=== PATIENT | female | born 1950 | race Caucasian/White ===

== ENCOUNTER 2017-08-04 10:04 | Inpatient (IN) | payer MEDICARE, MEDICAID ==
[~2017-08-04] VITALS: Ht 167.6 cm; Wt 97.7 kg
[2017-08-04] MEDS ORDERED: NS IV 500 ML 500 ML IV ONE (10:15)
--- NOTE | 2017-08-04 10:22 | ED Fall/Injury ---
General Stated Complaint: FALL Source: patient Exam Limitations: no limitations History of Present Illness Date Seen by Provider: Aug 04, 2017 Time Seen by Provider: 10:17 Initial Comments Patient present to ER by EMS with a chief complaint that she was at [facility] and found by staff laying on the floor requesting help to get up. Patient states she had a fall and after that she could not move her right leg was having commencement of pain in her right hip area. She has a history of having fractured her right ankle years ago but no hip problems. She says she can still feel and move her feet. She is not on any blood thinners. She does not take any medications. She denies any chest pain, shortness of breath, fevers , chills, nausea, vomiting. EMS reports her right leg is outwardly rotated mildly flexed and she will not allow them to move it but she is also not requesting any pain medicine so they have not done anything but start an IV. Allergies and Home Medications Allergies Coded Allergies: No Known Drug Allergies (Unverified , 08/04/17) Constitutional: No chills, No diaphoresis Eyes: Denies Blindness, Denies Blurred Vision Ears, Nose, Mouth, Throat: denies ear pain, denies ear discharge Respiratory: No cough, No short of breath Cardiovascular: No chest pain, No palpitations Gastrointestinal: No abdominal pain, No constipation, No diarrhea, No nausea Genitourinary: No discharge, No dysuria Musculoskeletal: see HPI, No back pain Skin: No pruritus, No rash Past Rhoueda-Nczxlg-Wwopjv Hx Patient Social History Alcohol Use: Denies Use Recreational Drug Use: No Smoking Status: Never a Smoker Physical Exam Vital Signs Capillary Refill : General Appearance: WD/WN, no apparent distress HEENT: PERRL/EOMI, TMs normal, pharynx normal, other (negative for hemotympanum , troy sign, raccoon eyes.) Neck: non-tender, supple, normal inspection Cardiovascular: normal peripheral pulses, regular rate, rhythm, no edema Respiratory: chest non-tender, lungs clear, normal breath sounds, no respiratory distress, no accessory muscle use Gastrointestinal: non tender, soft Extremities: no pedal edema, no calf tenderness, normal capillary refill, other (tenderness around the right hip. Outwardly rotated.) Neurologic/Psychiatric: alert, normal mood/affect, oriented x 3 Skin: normal color, warm/dry Teja Coma Score Best Eye Response: (4) Open Spontaneously Best Verbal Response: (5) Oriented Best Motor Response: (6) Obeys Commands Teja Total: 15 Progress/Results/Core Measures Results/Orders Lab Results Laboratory Tests Test 08/04/17 10:08 08/04/17 11:15 Range/Units White Blood Count 9.6 4.3-11.0 10^3/uL Red Blood Count 4.39 4.35-5.85 10^6/uL Hemoglobin 12.6 11.5-16.0 G/DL Hematocrit 39 35-52 % Mean Corpuscular Volume 88 80-99 FL Mean Corpuscular Hemoglobin 29 25-34 PG Mean Corpuscular Hemoglobin Concent 33 32-36 G/DL Red Cell Distribution Width 14.2 10.0-14.5 % Platelet Count 216 130-400 10^3/uL Mean Platelet Volume 11.0 H 7.4-10.4 FL Neutrophils (%) (Auto) 58 42-75 % Lymphocytes (%) (Auto) 31 12-44 % Monocytes (%) (Auto) 8 0-12 % Eosinophils (%) (Auto) 3 0-10 % Basophils (%) (Auto) 1 0-10 % Neutrophils # (Auto) 5.6 1.8-7.8 X 10^3 Lymphocytes # (Auto) 3.0 1.0-4.0 X 10^3 Monocytes # (Auto) 0.8 0.0-1.0 X 10^3 Eosinophils # (Auto) 0.3 0.0-0.3 10^3/uL Basophils # (Auto) 0.1 0.0-0.1 10^3/uL Sodium Level 140 135-145 MMOL/L Potassium Level 4.2 3.6-5.0 MMOL/L Chloride Level 103 98-107 MMOL/L Carbon Dioxide Level 23 21-32 MMOL/L Anion Gap 14 5-14 MMOL/L Blood Urea Nitrogen 14 7-18 MG/DL Creatinine 1.01 0.60-1.30 MG/DL Estimat Glomerular Filtration Rate 55 BUN/Creatinine Ratio 14 Glucose Level 107 H 70-105 MG/DL Calcium Level 9.5 8.5-10.1 MG/DL Total Bilirubin 0.3 0.1-1.0 MG/DL Aspartate Amino Transf (AST/SGOT) 21 5-34 U/L Alanine Aminotransferase (ALT/SGPT) 18 0-55 U/L Alkaline Phosphatase 80 40-136 U/L Total Protein 8.5 H 6.4-8.2 GM/DL Albumin 4.1 3.2-4.5 GM/DL Urine Color YELLOW Urine Clarity CLEAR Urine pH 5 5-9 Urine Specific [place] 1.015 L 1.016-1.022 Urine Protein NEGATIVE NEGATIVE Urine Glucose (UA) NEGATIVE NEGATIVE Urine Ketones NEGATIVE NEGATIVE Urine Nitrite NEGATIVE NEGATIVE Urine Bilirubin NEGATIVE NEGATIVE Urine Urobilinogen NORMAL NORMAL MG/DL Urine Leukocyte Esterase NEGATIVE NEGATIVE Urine RBC (Auto) 1+ H NEGATIVE Urine RBC RARE /HPF Urine WBC NONE /HPF Urine Squamous Epithelial Cells RARE /HPF Urine Crystals NONE /LPF Urine Bacteria NEGATIVE /HPF Urine Casts NONE /LPF Urine Mucus NEGATIVE /LPF Urine Culture Indicated NO My Orders Orders - PIOTR COWAN Cbc With Automated Diff (08/04/17 10:15) Comprehensive Metabolic Panel (08/04/17 10:15) Ua Culture If Indicated (08/04/17 10:15) Hip, Right, 2 Views (08/04/17 10:15) Ct Head/Cervical Spine Wo (08/04/17 10:15) Saline Lock/Iv-Start (08/04/17 10:15) Ns Iv 500 Ml (Sodium Chloride 0.9%) (08/04/17 10:15) Chest 1 View, Ap/Pa Only (08/04/17 11:20) Progress Note #1: Time: 10:20 Progress Note Reimage her hip as well as because of her parietal hematoma didn't imaging of her head and neck. Some blood work and urinalysis. She is not requesting anything for pain at this time. While the patient is wearing a c-collar she is moving her neck around a lot despite her insistence that she hold still. She is a very animated talker Progress Note #2: Time: 11:45 Progress Note C-collar removed and patient is without pain. C-spine cautions removed and cleared from clinic a significant fracture or injury secondary to clinical exam and CAT scan. Diagnostic Imaging Diagonstic Imaging: Xray Plain Films/CT/US/NM/MRI: pelvis (right hip) Comments [facility]. [place], [place] NAME: PRASANTH LESTER REC#: [id number] PT STATUS: REG ER : 1950 PHYSICIAN: PIOTR COWAN MD ADMIT DATE: 08/04/17/ER Draft Date of Exam:08/04/17 HIP, RIGHT, 2 VIEWS EXAM: HIP, RIGHT, 2 VIEWS INDICATION: Fall. Right hip pain. COMPARISON: None. FINDINGS: Cortical irregularity in the right femoral neck suspicious for fracture. The right femoral head remains located within the acetabulum. The visualized soft tissues are unremarkable. IMPRESSION: Cortical irregularities in the right femoral neck suspicious for fracture. This could be better evaluated with CT or MRI. Dictated on workstation # [id number] Dict: 08/04/17 1109 Trans: 08/04/17 1113 [id number] Interpreted by: ANDREEA ESQUEDA MD Electronically signed by: Reviewed: Reviewed by Me Diagonstic Imaging: CT Plain Films/CT/US/NM/MRI: c-spine, head Comments VIA [place], [place] NAME: PRASANTH LESTER [facility] REC#: [id number] PT STATUS: REG ER : 1950 PHYSICIAN: PIOTR COWAN MD ADMIT DATE: 08/04/17/ER Draft Date of Exam:08/04/17 CT HEAD/CERVICAL SPINE WO PROCEDURE: CT head and CT cervical spine without contrast. TECHNIQUE: Multiple contiguous axial images were obtained through the brain and cervical spine without the use of intravenous contrast. Sagittal and coronal reformations through the cervical spine were then performed. INDICATION: Fall. Head injury. COMPARISON: None. FINDINGS: CT head: No intracranial hemorrhage, mass effect, hydrocephalus or extra-axial fluid collection. Mild generalized cerebral and cerebellar parenchymal volume loss. Mild leukoaraiosis. No CT evidence of acute infarction. Scalp contusion overlying the right convexity. Osseous structures are intact. The visualized paranasal sinuses and mastoids are clear. CT cervical spine: Normal alignment. Vertebral body heights preserved. No fractures. Moderate diffuse degenerative endplate changes and facet arthropathy. No high-grade spinal canal narrowing on this noncontrast exam. Mild scattered atherosclerotic calcifications including the carotid bifurcations. The visualized paravertebral soft tissues are otherwise unremarkable. IMPRESSION: 1. Scalp contusion overlying the right calvarium. No fractures. 2. No acute intracranial or cervical spine CT findings. Dictated on workstation # [id number] Dict: 08/04/17 1105 Trans: 08/04/17 1110 [id number] Interpreted by: ANDREEA ESQUEDA MD Electronically signed by: Reviewed: Reviewed by Me Diagonstic Imaging: CT Plain Films/CT/US/NM/MRI: hip (right) Reviewed: Reviewed by Me Departure Communication (Admissions) Time/Spoke to Admitting Phy: 11:43 Communication Discussed case lab imaging findings with Dr. Bell she will take the patient in the hospital. Time/Spoke to Consulting Phy: 11:38 Communication/Consulting marianna; discussed case lab imaging findings and he would like patient admitted and a CT scan of the hip done with plans to operate tomorrow probably. Impression Impression: Primary Impression: Fall Qualified Codes: W19.XXXA - Unspecified fall, initial encounter Additional Impression: Closed right hip fracture Qualified Codes: S72.001A - Fracture of unspecified part of neck of right femur, initial encounter for closed fracture Disposition: ADMITTED INPATIENT Condition: Stable Admissions Decision to Admit Reason: Admit from ER (General) Decision to Admit/Date: Aug 04, 2017 Time/Decision to Admit Time: 11:41 Departure-Patient Inst. Referrals: UNKNOWN (PCP/Family) Primary Care Physician PIOTR COWAN Aug 04, 2017 10:22
[2017-08-04 10:25] LABS: BASOPHILS # (AUTO) 0.1 10^3/uL (0.0-0.1); BASOPHILS % (AUTO) 1 % (0-10); EOSINOPHILS # (AUTO) 0.3 10^3/uL (0.0-0.3); EOSINOPHILS % (AUTO) 3 % (0-10); HEMATOCRIT 39 % (35-52); HEMOGLOBIN 12.6 G/DL (11.5-16.0); LYMPHOCYTES % (AUTO) 31 % (12-44); MEAN CORPUSCULAR HEMOGLOBIN 29 PG (25-34); MEAN CORPUSCULAR HGB CONC 33 G/DL (32-36); MEAN CORPUSCULAR VOLUME 88 FL (80-99); MONOCYTES # (AUTO) 0.8 X 10^3 (0.0-1.0); MONOCYTES % (AUTO) 8 % (0-12); NEUTROPHILS # (AUTO) 5.6 X 10^3 (1.8-7.8); NEUTROPHILS % (AUTO) 58 % (42-75); PLATELET COUNT 216 10^3/uL (130-400); RED BLOOD COUNT 4.39 10^6/uL (4.35-5.85); RED CELL DISTRIBUTION WIDTH 14.2 % (10.0-14.5); WHITE BLOOD COUNT 9.6 10^3/uL (4.3-11.0)
[2017-08-04 10:36] LABS: ALBUMIN 4.1 GM/DL (3.2-4.5); BILIRUBIN,TOTAL 0.3 MG/DL (0.1-1.0); CALCIUM 9.5 MG/DL (8.5-10.1); CREATININE SERUM 1.01 MG/DL (0.60-1.30); POTASSIUM 4.2 MMOL/L (3.6-5.0); TOTAL PROTEIN 8.5 GM/DL (6.4-8.2)
--- NOTE | 2017-08-04 11:11 | Diagnostic Imaging Report ---
PROCEDURE: CT head and CT cervical spine without contrast. TECHNIQUE: Multiple contiguous axial images were obtained through the brain and cervical spine without the use of intravenous contrast. Sagittal and coronal reformations through the cervical spine were then performed. INDICATION: Fall. Head injury. COMPARISON: None. FINDINGS: CT head: No intracranial hemorrhage, mass effect, hydrocephalus or extra-axial fluid collection. Mild generalized cerebral and cerebellar parenchymal volume loss. Mild leukoaraiosis. No CT evidence of acute infarction. Scalp contusion overlying the right convexity. Osseous structures are intact. The visualized paranasal sinuses and mastoids are clear. CT cervical spine: Normal alignment. Vertebral body heights preserved. No fractures. Moderate diffuse degenerative endplate changes and facet arthropathy. No high-grade spinal canal narrowing on this noncontrast exam. Mild scattered atherosclerotic calcifications including the carotid bifurcations. The visualized paravertebral soft tissues are otherwise unremarkable. IMPRESSION: 1. Scalp contusion overlying the right calvarium. No fractures. 2. No acute intracranial or cervical spine CT findings. Dictated by: Dictated on workstation # [id number]
--- NOTE | 2017-08-04 11:14 | Diagnostic Imaging Report ---
EXAM: HIP, RIGHT, 2 VIEWS INDICATION: Fall. Right hip pain. COMPARISON: None. FINDINGS: Cortical irregularity in the right femoral neck suspicious for fracture. The right femoral head remains located within the acetabulum. The visualized soft tissues are unremarkable. IMPRESSION: Cortical irregularities in the right femoral neck suspicious for fracture. This could be better evaluated with CT or MRI. Dictated by: Dictated on workstation # [id number]
[2017-08-04 11:23] LABS: BILIRUBIN,URINE NEGATIVE (NEGATIVE); CLARITY,URINE CLEAR; COLOR,URINE YELLOW; GLUCOSE, URINE (UA) NEGATIVE (NEGATIVE); KETONES,URINE NEGATIVE (NEGATIVE); LEUKOCYTE ESTERASE ,URINE NEGATIVE (NEGATIVE); NITRITE,URINE NEGATIVE (NEGATIVE); PH,URINE 5 (5-9); PROTEIN,URINE NEGATIVE (NEGATIVE); UROBILINOGEN,URINE NORMAL (NORMAL)
[2017-08-04 11:30] LABS: BACTERIA,URINE NEGATIVE /HPF; RBC,URINE RARE /HPF; SQUAMOUS EPITHELIAL CELL,UR RARE /HPF
--- NOTE | 2017-08-04 12:08 | Consultation-Hospitalist ---
HPI History of Present Illness: HPI/Chief Complaint Pt is a 66yoCF with a history of intellectual disability who resides in assisted living presented to the ER today for evlauatin of hip pain after a fall. She reports she was in her bathroom and went to stand up and "one foot went one way and one went the other" and she feel. She denies any syncope, LOC, or palpitations. She did hit her head though. She has had hip pain since it started prompting her to seek evaluation here. In the ER she was found to have a likely right hip fracture of the femoral neck on XR. She was admitted for surgical evaluation. Source: patient Date Seen 08/04/17 Attending Physician PCP Unknown Referring Physician Dr Gould Date of Admission 08/04/17 Home Medications & Allergies Home Medications Reviewed patient Home Medication Reconciliation Form Allergies Allergies Coded Allergies No Known Drug Allergies (Unverified08/04/17) Past Hcmhlxe-Hxkyyq-Qdyogl Hx Patient Social History Marrital Status: single Employed/Student: unemployed Alcohol Use: Denies Use Recreational Drug Use: No Smoking Status: Never a Smoker Recent Foreign Travel: No Contact w/other who traveled: No Recent Infectious Disease Expo: No Surgeries No Respiratory No Cardiovascular No Neurological No Genitourinary No Gastrointestinal No Musculoskeletal No Endocrine History of Endocrine Disorders: No HEENT History of HEENT Disorders: No Cancer No Psychosocial History of Psychiatric Problem: No Integumentary History of Skin or Integumenta: No Review of Systems Constitutional: No chills, No fever EENTM: No blurred vision, No double vision, No nose congestion, No throat pain Respiratory: No cough, No dyspnea on exertion, No short of breath Cardiovascular: No chest pain, No edema, No palpitations Gastrointestinal: No abdominal pain, No constipation, No diarrhea, No nausea, No vomiting Genitourinary: No dysuria, No frequency Musculoskeletal: joint pain, No muscle pain Skin: No lesions, No rash Psychiatric/Neurological: Denies Headache, Denies Numbness, Denies Tingling Physical Exam Physical Exam Vital Signs Vital Signs - First Documented 08/04/17 10:04 Temp 98.0 Pulse 83 Resp 18 B/P (MAP) 124/64 (84) Pulse Ox 93 O2 Delivery Room Air Capillary Refill : Less Than 3 Seconds General Appearance: No Apparent Distress, WD/WN HEENT: PERRL/EOMI, Moist Mucous Membranes Neck: Non Tender, Supple Respiratory: Lungs Clear, No Respiratory Distress Cardiovascular: Regular Rate, Rhythm, No Murmur Gastrointestinal: Normal Bowel Sounds, Non Tender, Soft Extremity: Normal Capillary Refill, No Calf Tenderness Neurologic/Psychiatric: Alert, Oriented x3, Other (normal speech, intellectually impaired) Skin: Normal Color, Warm/Dry Results Results/Procedures Lab Laboratory Tests 08/04/17 10:08 Radiology Date of Exam:08/04/17 HIP, RIGHT, 2 VIEWS EXAM: HIP, RIGHT, 2 VIEWS INDICATION: Fall. Right hip pain. COMPARISON: None. FINDINGS: Cortical irregularity in the right femoral neck suspicious for fracture. The right femoral head remains located within the acetabulum. The visualized soft tissues are unremarkable. IMPRESSION: Cortical irregularities in the right femoral neck suspicious for fracture. This could be better evaluated with CT or MRI. Date of Exam:08/04/17 CT HEAD/CERVICAL SPINE WO PROCEDURE: CT head and CT cervical spine without contrast. TECHNIQUE: Multiple contiguous axial images were obtained through the brain and cervical spine without the use of intravenous contrast. Sagittal and coronal reformations through the cervical spine were then performed. INDICATION: Fall. Head injury. COMPARISON: None. FINDINGS: CT head: No intracranial hemorrhage, mass effect, hydrocephalus or extra-axial fluid collection. Mild generalized cerebral and cerebellar parenchymal volume loss. Mild leukoaraiosis. No CT evidence of acute infarction. Scalp contusion overlying the right convexity. Osseous structures are intact. The visualized paranasal sinuses and mastoids are clear. CT cervical spine: Normal alignment. Vertebral body heights preserved. No fractures. Moderate diffuse degenerative endplate changes and facet arthropathy. No high-grade spinal canal narrowing on this noncontrast exam. Mild scattered atherosclerotic calcifications including the carotid bifurcations. The visualized paravertebral soft tissues are otherwise unremarkable. IMPRESSION: 1. Scalp contusion overlying the right calvarium. No fractures. 2. No acute intracranial or cervical spine CT findings. Assessment/Plan Admission Diagnosis Right hip fracture Diagnosis/Problems Diagnosis/Problems (1) Closed right hip fracture Status: Acute Assessment & Plan: Ortho primary Will evaluate tomorrow for surgical intervention PT/OT to see after Ortho eval Qualifiers: Qualified Codes: S72.001A - Fracture of unspecified part of neck of right femur, initial encounter for closed fracture (2) Fall Status: Acute Assessment & Plan: hip fx as above CT Head and Neck just shows scalp contusion PT/OT tomorrow Qualifiers: Qualified Codes: W19.XXXA - Unspecified fall, initial encounter (3) Prophylactic measure Assessment & Plan: Reg diet today NPO after midnight SCD in prep for possible OR LUCA GAUTAM MD Aug 04, 2017 12:08
[2017-08-04] MEDS ORDERED: ANTACID SUSP 30 ML UDC (MYLANTA) PO PRN (12:15)
[2017-08-04] MEDS ORDERED: ACETAMINOPHEN 500 MG TAB (TYLENOL) PO PRN (12:15)
[2017-08-04] MEDS ORDERED: MELATONIN 3 MG TABLET PO PRN (12:15)
[2017-08-04] MEDS ORDERED: fentaNYL INJECTION 100 MCG/2 ML AMP IVP PRN (12:15)
[2017-08-04] MEDS ORDERED: MILK OF MAGNESIA 400 MG/5 ML 30 ML UDC PO PRN (12:15)
[2017-08-04 12:22] VITALS: BP 114/76
--- NOTE | 2017-08-04 12:34 | Diagnostic Imaging Report ---
Portable supine AP chest at 11:55 a.m. INDICATION: Hip fracture. There are no prior studies available for comparison. FINDINGS: The heart size is at the upper limits of normal. The lungs are clear. There is no sign of failure, pneumonia or pleural effusion to suggest an acute abnormality. However, both the mediastinum and the left hilum do seem prominent. These findings could be related to the patient's supine position. The possibility that there is an underlying hilar mass with mediastinal adenopathy should also be considered. If previous exams are available, they would be helpful for comparison. If there are no prior studies, then CT of the chest would be recommended for further study. The osseous structures are intact. IMPRESSION: 1. There is borderline cardiomegaly but there is no evidence for an acute cardiopulmonary abnormality. 2. Both the mediastinum and the left hilum do seem prominent. Considerations and recommendations as above. 3. These results were discussed with Dr. Casey in ER. Dictated by: Dictated on workstation # [id number]
[2017-08-04] MEDS ORDERED: CATHETER FLUSH 10 ML SYR IV PRN (12:45)
[2017-08-04] MEDS ORDERED: ACETAMINOPHEN 325 MG TABLET/CAPLET (TYLENOL) PO PRN (12:45)
[2017-08-04 14:13] VITALS: BP 112/72
[2017-08-04] MEDS ORDERED: INFLUENZA TRIvalent 2017-2018 0.5 ML/45 MCG SYR IM ONE (15:00)
[2017-08-04 15:58] VITALS: BP 147/78
[2017-08-04] MEDS: CATHETER FLUSH 10 ML SYR IV SCH ×2 (16:00→23:00)
--- NOTE | 2017-08-04 17:31 | Diagnostic Imaging Report ---
PROCEDURE: CT pelvis without contrast. TECHNIQUE: Multiple contiguous axial images were obtained through the pelvis without the use of intravenous contrast. Sagittal and coronal reformations were performed. INDICATION: Right hip fracture FINDINGS: There is a subcapital fracture of the right hip with less than 1 cm of impaction and minimal varus deformity. The trochanters are intact. There is no dislocation. No pelvic fracture is seen. IMPRESSION: There is a minimally impacted subcapital fracture of the right hip. Dictated by: Dictated on workstation # [id number]
[2017-08-04] MEDS ORDERED: PEDI100T4 PO (17:58)
[2017-08-04 20:00] VITALS: BP 106/66
[2017-08-05] VITALS (7 sets, daily range): BP systolic 100–122; BP diastolic 57–86
[2017-08-05 04:35] LABS: BASOPHILS # (AUTO) 0.1 10^3/uL (0.0-0.1); BASOPHILS % (AUTO) 1 % (0-10); EOSINOPHILS # (AUTO) 0.3 10^3/uL (0.0-0.3); EOSINOPHILS % (AUTO) 3 % (0-10); HEMATOCRIT 38 % (35-52); HEMOGLOBIN 12.5 G/DL (11.5-16.0); LYMPHOCYTES # (AUTO) 1.1 X 10^3 (1.0-4.0); LYMPHOCYTES % (AUTO) 10 % (12-44); MEAN CORPUSCULAR HEMOGLOBIN 29 PG (25-34); MEAN CORPUSCULAR HGB CONC 33 G/DL (32-36); MEAN CORPUSCULAR VOLUME 87 FL (80-99); MEAN PLATELET VOLUME 10.2 FL (7.4-10.4); MONOCYTES # (AUTO) 0.8 X 10^3 (0.0-1.0); MONOCYTES % (AUTO) 7 % (0-12); NEUTROPHILS # (AUTO) 8.5 X 10^3 (1.8-7.8); NEUTROPHILS % (AUTO) 79 % (42-75); PLATELET COUNT 188 10^3/uL (130-400); RED BLOOD COUNT 4.39 10^6/uL (4.35-5.85); RED CELL DISTRIBUTION WIDTH 14.2 % (10.0-14.5); WHITE BLOOD COUNT 10.7 10^3/uL (4.3-11.0)
[2017-08-05 04:54] LABS: BUN/CREATININE RATIO 13; CALCIUM 9.2 MG/DL (8.5-10.1); CARBON DIOXIDE 23 MMOL/L (21-32); CHLORIDE 106 MMOL/L (98-107); CREATININE SERUM 0.88 MG/DL (0.60-1.30); GFR ESTIMATED > 60; GLUCOSE 118 MG/DL (70-105); POTASSIUM 4.2 MMOL/L (3.6-5.0); SODIUM 140 MMOL/L (135-145)
[2017-08-05] MEDS: CATHETER FLUSH 10 ML SYR IV SCH ×3 (06:44→21:10)
[2017-08-05] MEDS: NS IV 1000 ML 1,000 ML IV SCH ×2 (08:31→20:53)
[2017-08-05] MEDS ORDERED: LIDOCAINE PF 2% 5 ML (XYLOCAINE) VIAL ONE (13:47)
[2017-08-05] MEDS ORDERED: proPOfol 200 MG/20 ML (DIPRIVAN) VIAL IV ONE (13:47)
[2017-08-05] MEDS ORDERED: LACTATED RINGERS 1,000 ML IV ONE (13:47)
[2017-08-05] MEDS ORDERED: fentaNYL INJECTION 100 MCG/2 ML AMP ONE (13:47)
[2017-08-05] MEDS ORDERED: MIDAZOLAM 2 MG/2 ML (VERSED) VIAL ONE (13:47)
[2017-08-05] MEDS ORDERED: SEVOFLURANE (ULTANE) 15 ML INHAL SOLN ONE ×4 (13:47→16:56)
[2017-08-05] MEDS ORDERED: ceFAZolin 2 GM IV Premixed 50 ML IV ONE (14:00)
--- NOTE | 2017-08-05 15:21 | Consultation ---
History of Present Illness History of Present Illness Patient Consulted On(anh/time) 08/05/17 15:13 Date Seen by Provider: Aug 05, 2017 Time Seen by Provider: 14:15 Reason for Visit: Surgical Consult History of Present Illness HPI/Chief Complaint Pt is a 66yo female with a history of intellectual disability who resides in assisted living presented to the ER Saturday for evaluation of hip pain after a fall. She reported in ED that she was in her bathroom and went to stand up and "one foot went one way and one went the other" and she fell. She denied any syncope, LOC, or palpitations. She has had hip pain since it started prompting her to seek evaluation here. In the ED she was found to have a right hip fracture of the femoral neck on x-ray and CT. She was admitted for surgical evaluation. She denies any pain today while lying in bed. Her sister is on her way from [facility] to sign surgical consent. Procedure and recovery was explained to both her and family members at bedside. Dr. Gould to visit with patient and family regarding treatment plan as well. Allergies and Home Medications Allergies Coded Allergies: No Known Drug Allergies (Unverified , 08/04/17) Home Medications Pedi Multivit No.7/Folic Acid 100 Mcg Tab.chew, 100 MCG PO DAILY, (Reported) Past Kkkpuzy-Djymip-Wwsdeu Hx Patient Social History Alcohol Use: Denies Use Recreational Drug Use: No Smoking Status: Never a Smoker Recent Foreign Travel: No Contact w/Someone Who Travel: No Recent Infectious Disease Expo: No Recent Hopitalizations: No Seasonal Allergies Seasonal Allergies: No Surgeries History of Surgeries: No Respiratory History of Respiratory Disorde: No Cardiovascular History of Cardiac Disorders: No Neurological History of Neurological Disord: Yes (seizure disorder as a teenager. Last seizure early 20's. Mentally handicap) Genitourinary History of Genitourinary Disor: No Gastrointestinal History of Gastrointestinal Di: No Musculoskeletal Musculoskeletal Disorders: Fractures Endocrine History of Endocrine Disorders: No HEENT History of HEENT Disorders: No Cancer History of Cancer: No Psychosocial History of Psychiatric Problem: No Integumentary History of Skin or Integumenta: No Family Medical History Family Medial History: Patient reports no known family medical history. Physical Exam-General Problems Physical Exam Vital Signs Vital Signs - First Documented 08/04/17 10:04 Temp 98.0 Pulse 83 Resp 18 B/P (MAP) 124/64 (84) Pulse Ox 93 O2 Delivery Room Air Capillary Refill : Less Than 3 SecondsLess Than 3 Seconds Assessment/Plan Assessment/Plan Admission Diagnosis/Plan Diagnosis: Right subcapital hip fracture with minimal impaction. Plan: Right hip pinning with cannulated screws Clinical Quality Measures DVT/VTE Risk/Contraindication: Risk Factor Score Per Nursin RFS Level Per Nursing on Admit: 4+=Very High JOANNE BARNETT APRN Aug 05, 2017 15:21
[2017-08-05] MEDS ORDERED: ceFAZolin 1,000 MG (ANCEF) VIAL ONE (15:26)
[2017-08-05] MEDS ORDERED: morphine INJ 4 MG/ML 1 ML (VIAL/SYRINGE) IV PRN (15:30)
[2017-08-05] MEDS ORDERED: HYDROcodone/APAP 7.5 MG/325 MG (LORTAB, LORCET PLUS) TABLET PO PRN (15:30)
[2017-08-05] MEDS ORDERED: oxyCODONE/APAP 5/325MG (PERCOCET 5) TABLET PO PRN (15:30)
[2017-08-05] MEDS ORDERED: HYDROcodone/APAP 5 MG/325 MG (LORTAB) TAB PO PRN (15:30)
[2017-08-05] MEDS ORDERED: morphine INJ 10 MG/ML 1ML (SYR OR VIAL) ONE (16:01)
[2017-08-05] MEDS ORDERED: ROPIVACAINE 5MG/ML 30ML VIAL ONE (16:26)
--- NOTE | 2017-08-05 16:42 | Progress Note-Post Operative ---
Post-Operative Progess Note Surgeon (s)/Ground Services Instructor (s) Surgeon LINNETTE MACEDO DO Ground Services Instructor: noe vora np Post-Operative Diagnosis closed minimally displaced femoral neck fx right hip Procedure & Operative Findings Date of Procedure 08/05/17 Procedure Performed/Findings ORIF right hip with 4 cannulated screws general anesthesia ebl 100ml stable to pacu, no complications patient will be touch down only or wheelchair for 8-12 weeks may discharge tomorrow if ok with medicine and an appropriate place can be found stables out in 10-14 days follow up in [place] for xrays in 4 weeks LINNETTE MACEDO DO Aug 05, 2017 16:42
[2017-08-05] MEDS ORDERED: morphine INJ 10 MG/ML 1ML (SYR OR VIAL) IVP PRN (17:15)
[2017-08-05] MEDS ORDERED: ONDANSETRON 4 MG/2 ML (SDV) Z0FRAN IVP PRN (17:15)
[2017-08-05] MEDS: KETOROLAC 15 MG/ML VIAL IM/IV SCH ×2 (18:00→21:08)
[2017-08-05] MEDS: LACTATED RINGERS 1,000 ML IV SCH (18:07)
[2017-08-05] MEDS: ONDANSETRON 4 MG/2 ML (SDV) Z0FRAN IV PRN (18:18)
--- NOTE | 2017-08-05 19:04 | Diagnostic Imaging Report ---
INDICATION: Right hip fracture Views were obtained with a portable intensifier in surgery during placement of 3 screws in the femoral neck and head, for treatment of right femoral neck fracture. The fracture fragments appear in near-anatomic alignment. 48 seconds of fluoroscopy time was used during surgery. IMPRESSION: Right femoral neck fracture with anatomic alignment post-ORIF. Dictated by: Dictated on workstation # [id number]
[2017-08-05] MEDS ORDERED: ceFAZolin 2 GM IV Premixed 50 ML IV SCH (22:00)
[2017-08-06] MEDS: NS IV 1000 ML 1,000 ML IV SCH ×2 (00:52→22:03)
[2017-08-06] MEDS: LACTATED RINGERS 1,000 ML IV SCH ×3 (01:01→21:38)
[2017-08-06] MEDS: KETOROLAC 15 MG/ML VIAL IM/IV SCH (02:35)
[2017-08-06 04:00] VITALS: BP 111/90
--- NOTE | 2017-08-06 04:40 | OPERATIVE REPORT ---
DATE OF SERVICE: I was asked to see this 66-year-old white female. She had fallen injuring her right hip. She was brought in by ambulance. She does live in [place] in an assisted living home. She is awake, alert and oriented. She has pain about the right hip. She has pain with motion. She is not ambulatory at this time. X-rays were reviewed. She has nondisplaced subcapital fracture present in both the AP and lateral projection. A CAT scan was done to confirm this, which did confirm the evidence of a fracture. ASSESSMENT: Subcapital fracture of right hip. PLAN: In talking with the patient and the family, I have told them that these really do not well with conservative treatment and that these are done early enough and we can keep weight off this for 8 to 12 weeks, that cannulated screw fixation works very well for this fracture. Some will go into arthritis and some will go into nonunion, but the vast majority do well with a fairly limited procedure. At this time, we recommended open reduction and internal fixation with 3 or 4 cannulated screws and everyone agreed at this time. PREOPERATIVE DIAGNOSIS: Closed minimally displaced subcapital fracture of right hip. POSTOPERATIVE DIAGNOSIS: Closed minimally displaced subcapital fracture of right hip. PROCEDURE: Open reduction and internal fixation right hip with 4 cannulated screws. LUMBER DRIVER: Nikole Guerra NP. GROSS PATHOLOGY: The patient had fallen yesterday injuring her right hip. She has a nondisplaced subcapital fracture present. This is an acute fracture and is confirmed both with 2 view x-rays and CAT scan. We are able to implant four Synthes 7 mm cannulated screws, one 80 mm screw, two 85 mm screws and one 90 screw. Alignment and position was satisfactory, compression was good and all screws were well within the head and neck on both the AP and lateral projection. DESCRIPTION OF PROCEDURE: The patient was given general anesthetic, placed in the supine position on the fracture table in mild traction followed by slight internal rotation was carried out. Checked under fluoroscopic control, position was found to be satisfactory. I did prepping and draping the hip ____ 6 cm incision made just at the level and inferior to the greater trochanter. Retractors were inserted. The guide system was used to place four cannulated screws. These were all measured and placed with a power and then tightened by hand and then sequentially tightened as each end of the screw was placed and there was good compression through all 4 screws. At this point, the pins were removed, checked under fluoroscopic control with the AP and lateral projections, then irrigated and closed in layers with #1 Vicryl, 2-0 Vicryl and wilver. The patient will be nonweightbearing for 8 to 12 weeks. ESTIMATED BLOOD LOSS: 50 mL. general anesthesia. No complications. Echo ARTURO Guerra was required in this care in order to position the patient for aid in retraction as well as closure and application of dressings. Job ID: [id number] DocumentID: [id number] Dictated Date: 08/05/2017 16:31:42 Sand Operator Date: 08/06/2017 01:21:50 Dictated By: LINNETTE MACEDO DO
[2017-08-06] MEDS ORDERED: ceFAZolin INJECTION 1 MG in NS (IVPB) 50 ML IV SCH (05:00)
[2017-08-06] MEDS ORDERED: ceFAZolin 1 GM/NS 50 ML IVPB IV SCH ×2 (05:45)
[2017-08-06] MEDS: CATHETER FLUSH 10 ML SYR IV SCH ×3 (06:14→21:39)
[2017-08-06 06:29] LABS: HEMOGLOBIN 10.7 G/DL (11.5-16.0); MEAN PLATELET VOLUME 10.8 FL (7.4-10.4); RED BLOOD COUNT 3.79 10^6/uL (4.35-5.85); RED CELL DISTRIBUTION WIDTH 14.4 % (10.0-14.5); WHITE BLOOD COUNT 9.7 10^3/uL (4.3-11.0)
--- NOTE | 2017-08-06 06:54 | Progress Note (SOAP) ---
Subjective Date Seen by Provider: Aug 06, 2017 Time Seen by Provider: 06:52 Subjective/Events-last exam Currently has no complaints. Hip pain controlled with meds. She has not yet been up with therapy Objective Exam Vital Signs Date Time Temp Pulse Resp B/P (MAP) Pulse Ox O2 Delivery O2 Flow Rate FiO2 08/06/17 04:00 99.8 92 18 111/90 (97) 95 Nasal Cannula 3.00 08/05/17 23:16 98.7 90 18 100/57 (71) 94 Nasal Cannula 3.00 08/05/17 21:08 Room Air 08/05/17 20:58 99.9 18 122/72 (89) 94 Nasal Cannula 3.00 08/05/17 19:42 Nasal Cannula 3.00 08/05/17 16:45 98.2 94 18 107/59 (75) 95 Nasal Cannula 3.00 08/05/17 12:02 99.1 73 22 116/86 (96) 92 Room Air 08/05/17 08:33 98.6 70 16 102/61 (75) 95 Room Air 08/05/17 08:31 94 Room Air I & O 08/06/17 07:00 Intake Total 1900 ml Output Total 575 ml Balance 1325 ml Capillary Refill : Less Than 3 SecondsLess Than 3 Seconds General Appearance: No Apparent Distress Extremity: No Calf Tenderness, No Pedal Edema Neurologic/Psychiatric: Alert, Oriented x3, No Motor/Sensory Deficits, Normal Mood/Affect Skin: Normal Color, Warm/Dry (dressing right hip CDI) Results Lab Laboratory Tests 08/06/17 05:20: White Blood Count 9.7, Red Blood Count 3.79L, Hemoglobin 10.7L, Hematocrit 34L, Mean Corpuscular Volume 90, Mean Corpuscular Hemoglobin 28, Mean Corpuscular Hemoglobin Concent 32, Red Cell Distribution Width 14.4, Platelet Count 131, Mean Platelet Volume 10.8H Assessment/Plan Assessment/Plan Assess & Plan/Chief Complaint A: s/p Perc pinning minimally displaced right femoral neck fracture P: Continue treatment, physical therapy today to educate patient on touch toe weight bearing with walker, possible Dc today or tomorrow Clinical Quality Measures DVT/VTE Risk/Contraindication: Risk Factor Score Per Nursin RFS Level Per Nursing on Admit: 4+=Very High TERRIE RUIZ APRN Aug 06, 2017 6:54 am
[2017-08-06 07:02] LABS: ALANINE AMINOTRANSFERASE 10 U/L (0-55); ALBUMIN 3.1 GM/DL (3.2-4.5); ALKALINE PHOSPHATASE 56 U/L (40-136); BILIRUBIN,TOTAL 0.7 MG/DL (0.1-1.0); BUN/CREATININE RATIO 15; CALCIUM 8.1 MG/DL (8.5-10.1); CARBON DIOXIDE 23 MMOL/L (21-32); CHLORIDE 104 MMOL/L (98-107); CREATININE SERUM 0.92 MG/DL (0.60-1.30); GFR ESTIMATED > 60; GLUCOSE 116 MG/DL (70-105); POTASSIUM 3.8 MMOL/L (3.6-5.0); SODIUM 137 MMOL/L (135-145); TOTAL PROTEIN 6.5 GM/DL (6.4-8.2)
[2017-08-06 08:00] VITALS: BP 120/59
--- NOTE | 2017-08-06 10:04 | Physical Therapy Evaluation ---
PT Evaluation-General Medical Diagnosis Admission Date Aug 04, 2017 at 11:50 Medical Diagnosis: right hip fracture Onset Date: Aug 04, 2017 Therapy Diagnosis Therapy Diagnosis: debility/weakness Height/Weight Height (Feet): 5 Height (Inches): 6.00 Weight (Pounds): 215 Weight (Ounces): 8.0 Precautions Precautions/Isolations: Fall Prevention, Standard Precautions Weight Bear Status Right Lower Extremity: Right Touch Toe Bearing Left Lower Extremity: Left Full Weight Bearing Referral Physician: Bryanna Reason for Referral: Evaluation/Treatment Medical History Additional Medical History MR Current History fall at [facility] resulting in right hip fracture Reviewed History: Yes Social History Home: Assisted Living Prior/Core FIM Prior Level of Function Functional [place] Measure 0=Not Assessed/NA 4=Minimal Assistance 1=Total Assistance 5=Supervision or Setup 2=Maximal Assistance 6=Modified [place] 3=Moderate Assistance 7=Complete [place] Bed Mobility: 6 Transfers (B,C,W/C) (FIM): 6 Gait: 6 PT Evaluation-Current Subjective Patient agrees to PT. Patient requires redirection to remain on task due to intellectual issues. Pain Numeric Pain Scale: 0-No Pain Location: No Pain Reported Objective Patient Orientation: Confused, MR Problem Solving: Poor Attachments: Oxygen, Glasgow Catheter, IV ROM/Strength ROM Lower Extremities right LE limited due to pain/fracture left LE WNL Strength Lower Extremities right LE NT due to patient inability to follow direction to perform MMT left LE 4/5 grossly Integumentary/Posture Integumentary refer to nursing notes Bladder Incontinence: Glasgow Cath Posture WFL Neuromuscular (Tone, Coordination, Reflexes) diminished coordination Sensory Vision: Wears Glasses Hearing: Functional Sensation Right Lower Extremit: Intact Sensation Left Lower Extremity: Intact Transfers Functional [place] Measure 0=Not Assessed/NA 4=Minimal Assistance 1=Total Assistance 5=Supervision or Setup 2=Maximal Assistance 6=Modified [place] 3=Moderate Assistance 7=Complete [place] Transfers (B, C, W/C) (FIM): 1 Scootin Rollin Supine to/from Sit: 1 Sit to/from Stand: 1 bed t/f WC(FIM only if WC use): 1 Patient unable to understand TTWB right LE due to mental status. Patient is very resistive with all movement and "fights" with transfer due to fear. Gait Anticipated Mode of Locomotion: Wheelchair Balance Sitting Static: Fair Sitting Dynamic: Fair Standing Static: Poor Standing Dynamic: Poor Assessment/Needs 66 y.o. female, will benefit from skilled PT to address functional mobility with transfers and bed mobility due to TTWB right LE. Due to intellectual status, patient is unable to safely perform TTWB right LE or comprehend safety concerns. From a PT standpoint, patient would benefit from LTCF to allow proper healing of right hip fracture. Rehab Potential: Fair PT Ride Operator Goals Snf Goals PT Ride Operator Goals Time Frame: Aug 13, 2017 Transfers (B,C,W/C) (FIM): 2 PT Plan Problem List Problem List: Activity Tolerance, Functional Strength, Safety, Balance, Gait, Transfer, Bed Mobility Treatment/Plan Treatment Plan: Continue Plan of Care Treatment Plan: Bed Mobility, Education, Functional Activity Crystal, Functional Strength, Gait, Safety, Therapeutic Exercise, Transfers Treatment Duration: Aug 13, 2017 Frequency: 6 times per week Estimated Hrs Per Day: .25 hour per day Patient and/or Family Agrees t: Yes Safety Risks/Education Patient Education: Transfer Techniques, Safety Issues Teaching Recipient: Patient Teaching Methods: Discussion Response to Teaching: Unable to Return Demonstration, Unable to Comprehend Discharge Recommendations Therapy D/C Recommendations: M[facility] Placement, Fdc (TCU/NH) Time/GCodes Time In: 845 Time Out: 905 Total Billed Treatment Time: 20 Total Billed Treatment 1 visit EVMod 20 min KARLA DEWITT PT Aug 06, 2017 10:04
[2017-08-06 12:00] VITALS: BP 128/62
--- NOTE | 2017-08-06 12:47 | Progress Note-Hospitalist ---
Standard Progress Note Progress Notes/Assess & Plan Date Seen 08/06/17 Time Seen by Provider: 12:44 Diagnosis Right hip fracture Assess & Plan/Chief Complaint The patient had operative fixation of her right hip fracture on 08/05. Nurses report today that she has had no output urinary-wild through the night. Her creatinine remained stable. I am told that they attempted to irrigate manipulate the catheter without any return of flow. After instructions from me the day shift manipulated and ultimately removed the catheter and the patient was able to urinate. She is going to be nonweightbearing for a reasonable period of time and will require jail placement until she is able to be active rehabilitation. patient financial services specialist has initiated this process. Physical exam: The patient is alert and oriented. Lungs are clear to auscultation. CV is regular without murmur. Impression: Status post fixation right hip fracture. 2.Day 1 postop. Plan: Labs Laboratory Tests 08/05/17 04:10 08/06/17 05:20 ROBERTA PARKER MD Aug 06, 2017 12:47
--- NOTE | 2017-08-06 14:01 | Occupational Therapy Eval ---
OT Evaluation-General/PLF Medical Diagnosis Admission Date Aug 04, 2017 at 11:50 Medical Diagnosis: right hip fracture, ORIF Onset Date: Aug 04, 2017 Therapy Diagnosis Therapy Diagnosis: decr self care, decr funct mob, weakness, Height/Weight Height (Feet): 5 Height (Inches): 6.00 Weight (Pounds): 215 Weight (Ounces): 8.0 Precautions Precautions/Isolations: Fall Prevention, Standard Precautions Safety Interventions: None Weight Bear Status Weight Bearing Restriction: Touch Toe Bearing Location Restriction: R LE Referral Physician: Bryanna Referral Reason: Evaluation/Treatment Medical History Additional Medical History Hx R ankle fx. Intellectual disability. Seizure disorder as a teenager Current History [facility] ORIF on 08-05-17. Reviewed History: Yes Social History Home: Assisted Living [facility] ADL-Prior Level of Function ADL PLOF Comments Pt and staff at [facility] reported that she was independent with all basic ADLs and did not walk with an assistive device DME/Equipment Comments bathrooms are most likely accessible. Pt reported that there is a shower without a threshold and a bench OT Current Status Subjective Pt seen in room, up in bed, agreeable to OT. Pt reported pain 0/10. Appearance Alert, cooperative, conversant Mental Status/Objective Patient Orientation: Person Attachments: Glasgow Catheter, IV Current Glasses/Contacts: Yes Hand Dominance: Right Upper Extremity ROM Grossly WFL bilat Upper Extremity Strength Grossly 3+ to 4/5 bilat. Some difficulty following instructions for muscle testing ADL-Treatment ADL-Current Nursing reported that pt is independent with eating and needs 1-2 person assist with toileting. PT eval showed dependant with bed mobility and resistant to moving. Also that pt was unable to understand weight restriction on R LE Functional [place] Measure 0=Not Assessed/NA 4=Minimal Assistance 1=Total Assistance 5=Supervision or Setup 2=Maximal Assistance 6=Modified [place] 3=Moderate Assistance 7=Complete IndependenceIRFPAI Quality Coding Scale 6 Independent with activity with or without an assistive device 5 Patient requires set up or clean up by helper. Patient completes activity by themselves 4 Supervision or touching assist (CGA). Longs provide cues , steadying assist 3 The helper provides less than half the effort to complete the activity 2 The helper provides more than half the effort to complete the activity 1 Dependent. The helper does all the effort to complete an activity 7 Patient refused to complete or attempt activity 9 The patient did not perform the activity before the current illness or injury 88 Not attempted due to Medical conditions or safety concerns Education OT Patient Education: Purpose of tx/functional activities, Rehab process Teaching Recipient: Patient Teaching Methods: Discussion Response to Teaching: Verbalize Understanding OT Shelter Goals Shelter Goals Time Frame: Aug 13, 2017 Eating (FIM): 6 Grooming(FIM): 5 Upper Body Dressing(FIM): 5 Toileting(FIM): 3 Toilet/Commode Transfer(FIM): 3 Additional Goals: 2-Verbalize Understanding, 3-ImproveStrength/Crystal 1=Demonstrate adherence to instructed precautions during ADL tasks. 2=Patient will verbalize/demonstrate understanding of assistive devices/ modifications for ADL. 3=Patient will improve strength/tolerance for activity to enable patient to perform ADL's. OT Education/Plan Problem List/Assessment Assessment: Decreased UE Strength, Dependent Transfers, Impaired Bed Mobility, Impaired Cognition, Impaired Self-Care Skills Pt would benefit from skilled OT to increase her independence in basic self care and to decrease caregiver burden Discharge Recommendations Plan/Recommendations: Continue POC Therapy D/C Recommendations: Custodial (TCU/NH) (OT) Barriers to Progress Inability to self monitor weight bearing status Treatment Plan/Plan of Care Treatment,Training & Education: Yes Patient would benefit from OT for education, treatment and training to promote independence in ADL's, mobility, safety and/or upper extremity function for ADL' s. Plan of Care: ADL Retraining, Functional Mobility, UE Funct Exercise/Act, UE Neuromus Re-Ed/Coord Treatment Duration: Aug 13, 2017 Frequency: 5 times per week Estimated Hrs Per Day: .5 hour per day Agreement: Yes Rehab Potential: Fair Time/GCodes Start Time: 11:28 Stop Time: 11:37 Total Time Billed (hr/min): 9 Billed Treatment Time visit, 9 minutes evaluation moderate intensity OSMAN ACOSTA OT Aug 06, 2017 14:01
--- NOTE | 2017-08-06 14:25 | Anesthesia-General Post-Op ---
General Patient Condition Mental Status/LOC: Same as Preop Cardiovascular: Satisfactory Nausea/Vomiting: Absent Respiratory: Satisfactory Pain: Controlled Complications: Absent Post Op Complications Complications None Follow Up Care/Instructions Patient Instructions None needed. Anesthesia/Patient Condition Patient Condition Patient is doing well, no complaints, stable vital signs, no apparent adverse anesthesia problems. Seen by Vidal Negro in post op. AZRA BRYANT DO Aug 06, 2017 14:25
[2017-08-06 15:50] VITALS: BP 103/65
[2017-08-06 20:00] VITALS: BP 163/65
[2017-08-07] VITALS: BP 120/70
[2017-08-07] MEDS: NS IV 1000 ML 1,000 ML IV SCH (01:35)
[2017-08-07] MEDS: ONDANSETRON 4 MG/2 ML (SDV) Z0FRAN IV PRN (01:37)
[2017-08-07] MEDS: CATHETER FLUSH 10 ML SYR IV SCH ×3 (06:09→20:09)
[2017-08-07] MEDS: LACTATED RINGERS 1,000 ML IV SCH (07:29)
[2017-08-07 08:00] VITALS: BP 120/61
[2017-08-07 09:42] LABS: BASOPHILS % (AUTO) 0 % (0-10); EOSINOPHILS # (AUTO) 0.2 10^3/uL (0.0-0.3); EOSINOPHILS % (AUTO) 2 % (0-10); HEMATOCRIT 30 % (35-52); HEMOGLOBIN 9.5 G/DL (11.5-16.0); LYMPHOCYTES # (AUTO) 0.9 X 10^3 (1.0-4.0); LYMPHOCYTES % (AUTO) 10 % (12-44); MEAN CORPUSCULAR HEMOGLOBIN 28 PG (25-34); MEAN CORPUSCULAR HGB CONC 32 G/DL (32-36); MEAN CORPUSCULAR VOLUME 89 FL (80-99); MEAN PLATELET VOLUME 10.3 FL (7.4-10.4); MONOCYTES # (AUTO) 1.1 X 10^3 (0.0-1.0); MONOCYTES % (AUTO) 11 % (0-12); NEUTROPHILS # (AUTO) 7.3 X 10^3 (1.8-7.8); NEUTROPHILS % (AUTO) 77 % (42-75); PLATELET COUNT 129 10^3/uL (130-400); RED BLOOD COUNT 3.36 10^6/uL (4.35-5.85); RED CELL DISTRIBUTION WIDTH 13.9 % (10.0-14.5); WHITE BLOOD COUNT 9.5 10^3/uL (4.3-11.0)
[2017-08-07 10:03] LABS: ALANINE AMINOTRANSFERASE 10 U/L (0-55); ALKALINE PHOSPHATASE 50 U/L (40-136); BILIRUBIN,TOTAL 0.7 MG/DL (0.1-1.0); BUN/CREATININE RATIO 16; CALCIUM 8.5 MG/DL (8.5-10.1); CARBON DIOXIDE 23 MMOL/L (21-32); CHLORIDE 105 MMOL/L (98-107); CREATININE SERUM 0.67 MG/DL (0.60-1.30); GFR ESTIMATED > 60; GLUCOSE 108 MG/DL (70-105); SODIUM 135 MMOL/L (135-145); TOTAL PROTEIN 6.3 GM/DL (6.4-8.2)
--- NOTE | 2017-08-07 11:41 | Diagnostic Imaging Report ---
INDICATION: Hypoxia. TIME OF EXAM: 11:24 a.m. Correlation is made with prior study from 08/04/2017. FINDINGS: The heart is enlarged but stable. There is central venous congestion. Interstitial markings are prominent suggestive of congestive failure. No effusion or pneumothorax is seen. IMPRESSION: Findings suggestive of congestive failure. Dictated by: Dictated on workstation # [id number]
--- NOTE | 2017-08-07 11:53 | Progress Note-Hospitalist ---
Standard Progress Note Progress Notes/Assess & Plan Date Seen 08/07/17 Time Seen by Provider: 11:50 Diagnosis Right hip fracture Assess & Plan/Chief Complaint As we were preparing for discharge to [facility], it was discovered that the patient had not previously used oxygen. It is noted that on admission to the ER her SaO2 was 95 percent on room air. This status continued until she went to the OR for hip repair on Saturday afternoon. I then called the OR and discussed this with the nurse economic adviser who did the case. He reported to me that when he was preparing her for surgery he found her SaO2 while lying down to be 86 percent. Subsequently she was returned on 3 L per nasal cannula and has been observed to continue to require this to have SaO2 is in the mid 90s. Physical exam shows her to be up in the bedside chair and alert. She states she has never smoked or had lung disease. Lungs are clear to auscultation. When asked to take a deep breath there is a little cough elicited. CV is regular. Extremities showed no tenderness to palpation or edema. Impression: Day number 2 postop right hip fracture repair. 2.hypoxia new-onset. Labs Laboratory Tests 08/06/17 05:20 08/07/17 09:26 ROBERTA PARKER MD Aug 07, 2017 11:53
--- NOTE | 2017-08-07 11:58 | Physical Therapy Daily Note ---
PT Daily Note-Current Subjective Dr Jonas and Palliative Care Nurse were visiting with pt upon arrival. Pt has been taking a short breath then coughing so Dr checked on pt. Dr & pt agree to PT. Pain Location: Right Location Body Site: Hip Pain Description: Ache Comment: Pt cannot rate pain. Mental Status Patient Orientation: Person, MR Transfers Functional [place] Measure 0=Not Assessed/NA 4=Minimal Assistance 1=Total Assistance 5=Supervision or Setup 2=Maximal Assistance 6=Modified [place] 3=Moderate Assistance 7=Complete IndependenceIRFPAI Quality Coding Scale 6 Independent with activity with or without an assistive device 5 Patient requires set up or clean up by helper. Patient completes activity by themselves 4 Supervision or touching assist (CGA). [place] provide cues , steadying assist 3 The helper provides less than half the effort to complete the activity 2 The helper provides more than half the effort to complete the activity 1 Dependent. The helper does all the effort to complete an activity 7 Patient refused to complete or attempt activity 9 The patient did not perform the activity before the current illness or injury 88 Not attempted due to Medical conditions or safety concerns Weight Bearing Right Lower Extremity: Right Touch Toe Bearing Left Lower Extremity: Left Full Weight Bearing Exercises Seated Therapy Exercises: Ankle pumps, Long arc quads, Hip flexion, Kicking activity Seated Reps: 15 Treatments Pt completes Seated Ex in recliner then rests. Pt resting in recliner at end of tx with all needs met. Assessment Current Status: Fair Progress Pt has difficulty following directions and is very nervous about moving RLE. PT Chcf Goals Chcf Goals PT Steeler Goals Time Frame: Aug 13, 2017 Transfers (B,C,W/C) (FIM): 2 PT Plan Problem List Problem List: Activity Tolerance, Functional Strength, Safety, Balance, Gait, Transfer Treatment/Plan Treatment Plan: Continue Plan of Care Treatment Plan: Bed Mobility, Education, Functional Activity Crystal, Functional Strength, Gait, Safety, Therapeutic Exercise, Transfers Treatment Duration: Aug 13, 2017 Frequency: 6 times per week Estimated Hrs Per Day: .25 hour per day Patient and/or Family Agrees t: Yes Safety Risks/Education Patient Education: Correct Positioning, Safety Issues Teaching Recipient: Patient Teaching Methods: Discussion Response to Teaching: Reinforcement Needed Time/GCodes Time In: 1040 Time Out: 1050 Total Billed Treatment Time: 10 Total Billed Treatment 1, EX (10m) BREANNA COLE MANUFACTURING DESIGN ENGINEER Aug 07, 2017 11:58
[2017-08-07] MEDS ORDERED: NS 250 ML (IVPB) BAG IV ONE (13:15)
[2017-08-07] MEDS ORDERED: IOHEXOL 350 MG/ML 150 ML (OMNIPAQUE 350) VIAL IV ONE (13:15)
[2017-08-07] MEDS ORDERED: RECEIVED CONTRAST (Hold Metformin) IV SCH (13:30)
--- NOTE | 2017-08-07 15:36 | Diagnostic Imaging Report ---
PROCEDURE: CT angiography of the chest with contrast. TECHNIQUE: Multiple contiguous axial images were obtained through the chest after uneventful bolus administration of intravenous contrast. Reconstructed CTA MIP acquisitions were also performed. INDICATION: Shortness of breath and unexplained hypoxia. No prior studies are available for comparison. FINDINGS: Evaluation of the pulmonary arterial system is without evidence of thromboembolism. No filling defects are identified within the central, lobar or segmental pulmonary arterial branches. The thoracic aorta is normal caliber. No dissection is seen. There is no pericardial fluid. There are small bilateral pleural effusions. No axillary lymphadenopathy is identified. There are mildly prominent lymph nodes within the mediastinum and hilar regions bilaterally. Lower right paratracheal node measures approximately 9 mm short axis. There is also a subcarinal node measuring approximately 1.4 cm. Bilateral hilar nodes are noted measuring 0.9 cm on the right and 1.4 cm on the left. Parenchymal evaluation does show mixed interstitial and patchy groundglass airspace infiltrates bilaterally. The upper abdomen is unremarkable. The bony structures are nonacute. IMPRESSION: 1. No evidence of pulmonary embolism or thoracic aortic dissection. 2. Small bilateral pleural effusions. 3. Bilateral pulmonary infiltrates, perhaps infectious/inflammatory. There are mildly prominent lymph nodes in the mediastinum and li, perhaps on a reactive basis. Followup could be performed to confirm clearing. Dictated by: Dictated on workstation # [id number]
--- NOTE | 2017-08-07 15:49 | Occupational Ther Daily Note ---
OT Current Status-Daily Note Subjective Pt seen in room, up in bed, agreeable to OT. No pain mentioned Appearance Alert, cooperative Mental Status/Objective Functional [place] Measure 0=Not Assessed/NA 4=Minimal Assistance 1=Total Assistance 5=Supervision or Setup 2=Maximal Assistance 6=Modified [place] 3=Moderate Assistance 7=Complete [place] Other Treatment Pt did 10 reps bilat UE AROM to strengthen arms to help with transfers and ADLs. Exercises worked on shoulders, elbows, forearms, wrists and hands. Pt needed visual, verbal and at times hands on direction to do the exercises. Had difficulty tracking repetitions and doing exercises at same time. pt given "homework" with one exercise and she was able to recall it and do 10 more reps. pt left up in bed, 4 rails up, all needs met. Education OT Patient Education: Exercise program, Home exercise program, Purpose of tx/ functional activities Teaching Recipient: Patient Teaching Methods: Demonstration, Discussion Response to Teaching: Reinforcement Needed OT Short Term Goals Short Term Goals 1=Demonstrate adherence to instructed precautions during ADL tasks. 2=Patient will verbalize/demonstrate understanding of assistive devices/ modifications for ADL. 3=Patient will improve strength/tolerance for activity to enable patient to perform ADL's. OT Stockfeed Miller Goals Stockfeed Miller Goals Time Frame: Aug 13, 2017 Eating (FIM): 6 Grooming(FIM): 5 Upper Body Dressing(FIM): 5 Toileting(FIM): 3 Toilet/Commode Transfer(FIM): 3 Additional Goals: 2-Verbalize Understanding, 3-ImproveStrength/Crystal 1=Demonstrate adherence to instructed precautions during ADL tasks. 2=Patient will verbalize/demonstrate understanding of assistive devices/ modifications for ADL. 3=Patient will improve strength/tolerance for activity to enable patient to perform ADL's. OT Education/Plan Problem List/Assessment Pt would benefit from skilled OT to increase her independence in basic self care and to decrease caregiver burden Discharge Recommendations Plan/Recommendations: Continue POC Treatment Plan/Plan of Care Patient would benefit from OT for education, treatment and training to promote independence in ADL's, mobility, safety and/or upper extremity function for ADL' s. Plan of Care: ADL Retraining, Functional Mobility, UE Funct Exercise/Act, UE Neuromus Re-Ed/Coord Treatment Duration: Aug 13, 2017 Frequency: 5 times per week Estimated Hrs Per Day: .5 hour per day Agreement: Yes Rehab Potential: Fair Time/GCodes Start Time: 15:20 Stop Time: 15:35 Total Time Billed (hr/min): 15 Billed Treatment Time visit, 15 minutes exercise OSMAN ACOSTA OT Aug 07, 2017 15:49
[2017-08-07 15:54] VITALS: BP 120/60
[2017-08-07] MEDS ORDERED: FUROSEMIDE 40 MG/4 ML INJ (LASIX) IVP NR (17:30)
[2017-08-08] VITALS: BP 115/68
[2017-08-08] MEDS: ONDANSETRON 4 MG/2 ML (SDV) Z0FRAN IV PRN (00:23)
[2017-08-08] MEDS: CATHETER FLUSH 10 ML SYR IV SCH (06:00)
[2017-08-08 08:00] VITALS: BP 109/59
--- NOTE | 2017-08-08 08:43 | Consultation-Cardiology ---
HPI-Cardiology Cardiology Consultation Date of Consultation 08/08/17 Date of Admission Time Seen by Provider: 08:30 Indication: Hypoxemia, elevated BNP HPI Patient is a 66-year-old female with no significant past medical history. Came into the hospital with right hip fracture. Underwent repair 2 days ago. Was getting ready for discharge, prior to discharge noted be hypoxemic while lying down. Further workup revealed mildly elevated BNP. Upon interviewing the patient. She denies chest pain, dyspnea, lightheadedness or dizziness. No other complaints at this time. 66 years old lady admitted for hip fracture, post surgical repair she was doing well, she became hypoxic yesterday with increasing shortness of breath. Noted to be fluid overloaded. Had elevated BNP level. Workup for consultation. Had an echocardiogram which showed normal left ventricular function. This morning I evaluated her and she appeared to be feeling better, breathing better, denied any chest pain or shortness of breath. Home Medications & Allergies Allergies: Coded Allergies: No Known Drug Allergies (Unverified , 08/04/17) Home Medication List Reviewed: Yes ANJ-Jwtqio-Ywzlac Hx Patient Social History Marital Status: single Employed/Student: unemployed Alcohol Use: Denies Use Recreational Drug Use: No Smoking Status: Never a Smoker Recent Foreign Travel: No Recent Infectious Disease Expo: No Recent Hopitalizations: No Physical Abuse Screen: No Sexual Abuse: No Family Medical History Significant Family History: No Pertinent Family Hx Family History: Patient reports no known family medical history. Constitutional: No chills, No diaphoresis, No fever, No malaise EENTM: No blurred vision, No double vision, No vision loss Respiratory: No cough, No dyspnea on exertion, No orthopnea, No wheezing Cardiovascular: No chest pain, No Hx of Intervention, No palpitations, No vascular heart diseas Gastrointestinal: No abdominal pain, No constipation, No diarrhea Genitourinary: No frequency, No hematuria Musculoskeletal: No back pain, No neck pain Skin: No lesions, No rash Psychiatric/Neurological: Denies Anxiety, Denies Depressed Reviewed Test Results Reviewed Test Results Lab Laboratory Tests 08/07/17 12:10: Troponin I < 0.30, B-Type Natriuretic Peptide 242.4H ECG Impression ECG Initial ECG Rhythm: Normal Sinus Physical Exam Vital Signs Vital Signs - First Documented 08/04/17 08/05/17 10:04 16:45 Temp 98.0 Pulse 83 Resp 18 B/P (MAP) 124/64 (84) Pulse Ox 93 O2 Delivery Room Air O2 Flow Rate 3.00 Capillary Refill : Less Than 3 SecondsLess Than 3 Seconds General Appearance: No Apparent Distress, WD/WN HEENT: PERRL/EOMI, TMs Normal, Normal ENT Inspection, Pharynx Normal Neck: Full Range of Motion, Non Tender, Supple Respiratory: Chest Non Tender, Lungs Clear, Normal Breath Sounds Cardiovascular: Regular Rate, Rhythm, No Edema, No Gallop, No JVD, No Murmur Gastrointestinal: No Pulsatile Mass, Non Tender, Soft Rectal: Deferred Back: No CVA Tenderness Extremity: Non Tender, No Calf Tenderness, No Pedal Edema Neurologic/Psychiatric: Alert, Oriented x3, pest control applicator II-XII Norm as Tested Skin: Normal Color, Warm/Dry Lymphatic: No Adenopathy A/P-Cardiology Admission Diagnosis Elevated BNP Dyspnea Hypoxemia right hip fracture Assessment/Plan Elevated BNP- 2D Echo done revealed normal EF, no evidence of CHF. Dyspnea/hypoxemia- improved. Likely related to volume overload and lack of use of IS. Continue to monitor Right hip fracture- s/p repair, improving. Thank you for allowing us to participate in the management of Ms. Foss. This is Devora Chow PA-C, as a scribe for Dr. Harrison. This is Dr. Harrison, I have seen and evaluated the patient with Devora, discussed the management plan, interviewed the patient and perform physical examination and agree with the current scribe. I made few modification and used Italic Font, in brief she is a 66-year-old lady with hip fracture admitted for hip surgery which was done 2 days ago, yesterday she became more short of breath with fluid overloaded. Responded to IV Lasix. Had an echocardiogram done which showed normal left ventricular function no signs of heart failure. I reassured her at this time. It is okay from cardiology standpoint for discharge and follow-up as an outpatient. Continue to monitor blood pressure Clinical Quality Measures DVT/VTE Risk/Contraindication: Risk Factor Score Per Nursin RFS Level Per Nursing on Admit: 4+=Very High DEVORA PUGH Aug 08, 2017 8:43 am NATHALIE HARRISNO MD Aug 08, 2017 12:21 pm
--- NOTE | 2017-08-08 10:57 | Occupational Ther Daily Note ---
OT Current Status-Daily Note Subjective Pt seen in room, up in recliner, agreeable to OT. No pain mentioned. Appearance Alert, cooperative Mental Status/Objective Functional [place] Measure 0=Not Assessed/NA 4=Minimal Assistance 1=Total Assistance 5=Supervision or Setup 2=Maximal Assistance 6=Modified [place] 3=Moderate Assistance 7=Complete [place] Attachments: Oxygen, Saline Lock ADL-Treatment Grooming (FIM): 5 (Pt was able to wash face and hands, brush teeth, brush hair with setup. ) Other Treatment Pt recalled therapist from previous tx. She also recalled one bilat UE ex, with cues, and demonstrated it for OT. She did 7 reps but thought she had done 10, counting to herself. At the end of the tx (after ADLs), she did the exercise again, this time without cues, and counted out loud which helped her better track her repetitions. Pt encouraged to continue this exercise on her own, which should help with strengthening arms for ADLs and transfers. pt left up in her chair, all needs met. Education OT Patient Education: Exercise program, Purpose of tx/functional activities Teaching Recipient: Patient Teaching Methods: Demonstration, Discussion Response to Teaching: Verbalize Understanding, Return Demonstration, Reinforcement Needed OT Short Term Goals Short Term Goals 1=Demonstrate adherence to instructed precautions during ADL tasks. 2=Patient will verbalize/demonstrate understanding of assistive devices/ modifications for ADL. 3=Patient will improve strength/tolerance for activity to enable patient to perform ADL's. OT Intermediate Goals Suspect Artist Goals Time Frame: Aug 13, 2017 Eating (FIM): 6 Grooming(FIM): 5 Upper Body Dressing(FIM): 5 Toileting(FIM): 3 Toilet/Commode Transfer(FIM): 3 Additional Goals: 2-Verbalize Understanding, 3-ImproveStrength/Crystal 1=Demonstrate adherence to instructed precautions during ADL tasks. 2=Patient will verbalize/demonstrate understanding of assistive devices/ modifications for ADL. 3=Patient will improve strength/tolerance for activity to enable patient to perform ADL's. OT Education/Plan Problem List/Assessment Pt would benefit from skilled OT to increase her independence in basic self care and to decrease caregiver burden Discharge Recommendations Plan/Recommendations: Continue POC Treatment Plan/Plan of Care Patient would benefit from OT for education, treatment and training to promote independence in ADL's, mobility, safety and/or upper extremity function for ADL' s. Plan of Care: ADL Retraining, Functional Mobility, UE Funct Exercise/Act, UE Neuromus Re-Ed/Coord Treatment Duration: Aug 13, 2017 Frequency: 5 times per week Estimated Hrs Per Day: .5 hour per day Agreement: Yes Rehab Potential: Fair Time/GCodes Start Time: 10:31 Stop Time: 10:36 Total Time Billed (hr/min): 15 Billed Treatment Time visit, 10 minutes ADL, 5 minutes exercise OSMAN ACOSTA OT Aug 08, 2017 10:57
[2017-08-08] MEDS ORDERED: SENN-20 PO (11:40)
[2017-08-08] MEDS ORDERED: ENOX40DI13 SQ (11:40)
[2017-08-08] MEDS ORDERED: ACHD5005 PO (11:40)
[2017-08-08] MEDS ORDERED: LACT20SO2 PO (11:40)
[2017-08-08] MEDS ORDERED: POLY17PO23 PO (11:40)
[2017-08-08] MEDS ORDERED: BISA10SU12 PR (11:40)
--- NOTE | 2017-08-08 11:43 | Discharge Inst-Skilled Nursing ---
Discharge Inst-Skilled NF Chief Complaint Pt is a 66yoCF with a history of intellectual disability who resides in assisted living presented to the ER today for evlauatin of hip pain after a fall. She reports she was in her bathroom and went to stand up and "one foot went one way and one went the other" and she feel. She denies any syncope, LOC, or palpitations. She did hit her head though. She has had hip pain since it started prompting her to seek evaluation here. In the ER she was found to have a likely right hip fracture of the femoral neck on XR. She was admitted for surgical evaluation. Patient Instructions Patient Problems: Hip fracture Hypoxia requiring 2 L of oxygen due to poor excursion and lack of use of incentive spirometer Postop constipation Mild anemia at discharge Mental slowing chronic Consult/Follow Up/Orders Follow Up Appt.: Admit to [place] medical technician assistant Skilled NF Admit to: On License Of [facility] Certification (SNF) I certify that SNF services are required to be given on an inpatient basis because of the above named patient's need for group home care on a continuing basis for the conditions(s) for which he/she was receiving inpatient hospital services prior to his/her transfer to the SNF. Intermediate Facility Order: Nursing Services, Milk Tester-Evaluate & Treat, Physical Therapy-Evaluate & Treat, Speech Language-Evaluate & Treat Discharge Diet: No Restrictions Daily Activity as Tolerated: Yes New & Resume Previous Orders New Medications: Enoxaparin Sodium (Lovenox) 40 Mg/0.4 Ml Syringe 40 MG SQ DAILY, #7 SYRINGE Bisacodyl (Bisac-Evac) 10 Mg Supp.rect 10 MG SD BID for 30 Days, SUPP.RECT Hydrocodone Bit/Acetaminophen (Hydrocodone/Acetaminophen 5/325mg Tablet) 1 Tab Tab 1-2 TAB PO Q4H PRN for PAIN-MODERATE, #30 TAB Lactulose (Lactulose) 20 Gm/30 Ml Solution 10 GM PO BID for 30 Days, EA Polyethylene Glycol 3350 (Polyethylene Glycol 3350) 17 Gm Powd.pack 34 GM PO BID for 30 Days, EACH Sennosides/Docusate Sodium (Senna-Time S Tablet) 1 Each Tablet 2 EA PO BID for 30 Days, TAB Continued Medications: Pedi Multivit No.7/Folic Acid (Flintstones Multi-Vit Gummies) 100 Mcg Tab.chew 100 MCG PO DAILY, TAB Patsy Cole Aug 08, 2017 11:41 Pneu Vac Indicated: Yes PATSY COLE DO Aug 08, 2017 11:43
[2017-08-08] MEDS ORDERED: BISACODYL 10 MG SUPP (DULCOLAX) PR SCH (11:45)
[2017-08-08] MEDS ORDERED: SENNA W/DOCUSATE (SENOKOT S) TABLET PO SCH (11:45)
[2017-08-08] MEDS ORDERED: LACTULOSE SYRUP 10GM/15ML (ENULOSE) 30ML UDC PO SCH (11:45)
[2017-08-08] MEDS ORDERED: POLYETHYLENE GLYCOL 17 GM (MIRALAX) PACK PO SCH (11:45)
--- NOTE | 2017-08-08 11:48 | Discharge Summary-Hospitalist ---
Diagnosis/Chief Complaint Date of Admission Aug 04, 2017 at 11:50 Date of Discharge Discharge Date: Aug 08, 2017 Admission Diagnosis Right hip fracture Discharge Diagnosis Right hip fracture s/p repair Hypoxia requiring 2 L of oxygen at discharge due to poor excursion and lack of use of incentive spirometry were ruled out PE with normal CT angiogram but mild elevation in BNP consistent with brief volume overload now resolved Chronic mental slowing Postop constipation initiating medications at time of discharge for resolution Mild anemia Lovenox for DVT prophylaxis (1) Closed right hip fracture Status: Acute Assessment & Plan: Ortho primary Will evaluate tomorrow for surgical intervention PT/OT to see after Ortho eval (2) Fall Status: Acute Assessment & Plan: hip fx as above CT Head and Neck just shows scalp contusion PT/OT tomorrow (3) Prophylactic measure Assessment & Plan: Reg diet today NPO after midnight SCD in prep for possible OR Discharge Summary Discharge Physical Examination Allergies: Coded Allergies: No Known Drug Allergies (Unverified , 08/04/17) Vitals & I&Os Vital Signs Date Time Temp Pulse Resp B/P (MAP) Pulse Ox O2 Delivery O2 Flow Rate FiO2 08/08/17 09:00 Nasal Cannula 2.00 08/08/17 08:00 98.2 78 16 109/59 (26) 92 Hospital Course Note from 08/08/17: Patient doing well and lungs were clear to auscultation and no edema noted Patient was sitting in chair with oxygen on and in no distress Chronic mental slowing noted Patient doing much better but still requiring oxygen. CT angiogram revealed no PE and echocardiogram showed normal ejection fraction and Dr. Harrison revealed elevated BNP consistent with very mild overload. She will go [facility] on oxygen at the [facility] at 2 L and likely will be temporary. She also had constipation at time of discharge from postoperative state so multiple medications were started at time of discharge and may need of soapsuds enema to completely resolve after arriving back at the [facility]. Mild anemia of 9.9 was noted but Lovenox will be initiated for DVT prophylaxis for 7 days to assure her ambulation is enough for DVT prophylaxis naturally. Pain medication prescription was written and I reviewed her other home medication that included a Flintstones vitamin and she will go to [facility] and medical laboratory scientist will be her new primary care provider. Labs (last 24 hrs) Laboratory Tests 08/07/17 12:10: Troponin I < 0.30, B-Type Natriuretic Peptide 242.4H Discharge Home Medications: Active Scripts Active Lovenox (Enoxaparin Sodium) 40 Mg/0.4 Ml Syringe 40 Mg SQ DAILY Senna-Time S Tablet (Sennosides/Docusate Sodium) 1 Each Tablet 2 Ea PO BID 30 Days Polyethylene Glycol 3350 17 Gm Powd.pack 34 Gm PO BID 30 Days Bisac-Evac (Bisacodyl) 10 Mg Supp.rect 10 Mg VA BID 30 Days Lactulose 20 Gm/30 Ml Solution 10 Gm PO BID 30 Days Hydrocodone/Acetaminophen 5/325mg Tablet (Acetaminophen/Hydrocodone Bitart) 1 Tab Tab 1-2 Tab PO Q4H PRN Reported Flintstones Multi-Vit Gummies (Pedi Multivit No.7/Folic Acid) 100 Mcg Tab.chew 100 Mcg PO DAILY Instructions to patient/family Please see electronic discharge instructions given to patient. Clinical Quality Measures DVT/VTE Risk/Contraindication: Risk Factor Score Per Nursin RFS Level Per Nursing on Admit: 4+=Very High Problem Qualifiers (1) Closed right hip fracture: Encounter type: initial encounter Qualified Codes: S72.001A - Fracture of unspecified part of neck of right femur, initial encounter for closed fracture (2) Fall: Encounter type: initial encounter Qualified Codes: W19.XXXA - Unspecified fall, initial encounter CECE PANCHAL DO Aug 08, 2017 11:48
[2017-08-08] MEDS ORDERED: ENOXAPARIN 40 MG/0.4 ML (LOVENOX) SYR SC NR (12:00)
--- NOTE | 2017-08-08 14:01 | Physical Therapy Daily Note ---
PT Daily Note-Current Subjective Pt sitting in recliner upon arrival. Pt agrees to transfer from recliner to bed to rest as pt requested. Pain Location: No Pain Reported Mental Status Patient Orientation: Person, MR Attachments: Oxygen Transfers Functional [place] Measure 0=Not Assessed/NA 4=Minimal Assistance 1=Total Assistance 5=Supervision or Setup 2=Maximal Assistance 6=Modified [place] 3=Moderate Assistance 7=Complete IndependenceIRFPAI Quality Coding Scale 6 Independent with activity with or without an assistive device 5 Patient requires set up or clean up by helper. Patient completes activity by themselves 4 Supervision or touching assist (CGA). [place] provide cues , steadying assist 3 The helper provides less than half the effort to complete the activity 2 The helper provides more than half the effort to complete the activity 1 Dependent. The helper does all the effort to complete an activity 7 Patient refused to complete or attempt activity 9 The patient did not perform the activity before the current illness or injury 88 Not attempted due to Medical conditions or safety concerns Scootin Supine to/from Sit: 4 Sit to/from Stand: 3 Weight Bearing Right Lower Extremity: Right Touch Toe Bearing Left Lower Extremity: Left Full Weight Bearing Exercises Seated Therapy Exercises: Sit to stand Seated Reps: 5 Treatments Pt scoots forward in chair to attempt sit to stand. Pt transfers from sit to stand but feels she cannot maintain stand so sit back in chair (x4). On fifth attempt after scoot recliner closer to bed for SPT, pt is able to stand and transfer to EOB. CATERING STAFF MEMBER then assists pt with lifting BLE into bed. Pt has to be scooted up in bed for positioning. Pt rest in bed with all needs met at end of tx. Assessment Current Status: Fair Progress Pt continues to remain nervous/fearful with transfers and reports "I cannot do it". Pt is capable but needs encouragement to continue task. Pt flops when sitting and receives VC for proper sitting. PT Canvas Cutter Hand Goals Nursing Home Goals PT Nursing Home Goals Time Frame: Aug 13, 2017 Transfers (B,C,W/C) (FIM): 2 PT Plan Problem List Problem List: Activity Tolerance, Functional Strength, Safety, Balance, Gait, Transfer, Bed Mobility Treatment/Plan Treatment Plan: Continue Plan of Care Treatment Plan: Bed Mobility, Education, Functional Activity Crystal, Functional Strength, Gait, Safety, Therapeutic Exercise, Transfers Treatment Duration: Aug 13, 2017 Frequency: 6 times per week Estimated Hrs Per Day: .25 hour per day Patient and/or Family Agrees t: Yes Safety Risks/Education Patient Education: Transfer Techniques, Correct Positioning, Safety Issues Teaching Recipient: Patient Teaching Methods: Discussion Response to Teaching: Verbalize Understanding Time/GCodes Time In: 1130 Time Out: 1155 Total Billed Treatment Time: 25 Total Billed Treatment 1, FA x2 (25m) BREANNA COLE CATERING STAFF MEMBER Aug 08, 2017 14:01
[2017-08-09] MEDS ORDERED: MULTIVIT W/MINERALS TAB (THERAGRAN M) PO SCH (07:00)
== END 2017-08-08 16:20 | DRG 482 ==
LOC: ER 10:06 → ICU 11:50 → 4TH 08-05 11:00
PROVIDERS: ADMIT Orthopaedic Surgery; ATTEND Orthopaedic Surgery
PROC: 0QH634Z Insertion of Internal Fixation Device into Right Upper Femur, Percutaneous Approach (ICD-10-PCS; principal; 2017-08-05 15:32)
DX: S72.011A Unspecified intracapsular fracture of right femur, initial encounter for closed fracture (principal); S00.03XA Contusion of scalp, initial encounter; E87.70 Fluid overload, unspecified; R09.02 Hypoxemia; D64.9 Anemia, unspecified; K59.00 Constipation, unspecified; F79 Unspecified intellectual disabilities; Z66 Do not resuscitate; W19.XXXA Unspecified fall, initial encounter; Y92.121 Bathroom in nursing home as the place of occurrence of the external cause
CPT/HCPCS: 36415; 51702; 70450; 71045; 71275; 72125; 72192; 73502; 80048; 80053; 81000; 83880; 84484; 85025; 85027; 93005; 93306; 94664; 94761; 96360

== ENCOUNTER → 2022-01-12 | Outpatient (CLI) | payer MEDICARE, MEDICAID ==
[~2022-01-12] MED LIST: ACHD5005 PO; BISA10SU12 PR; ENOX40DI13 SQ; LACT20SO2 PO; PEDI100T4 PO; POLY17PO54 PO; SENN-20 PO
--- NOTE | 2022-01-12 12:10 | Diagnostic Imaging Report ---
INDICATION: Left ankle pain post fall. AP, oblique, and lateral views of the left ankle are obtained. Mid to distal tibial shaft fractures are again identified, see dictation of left tibia and fibula. The ankle joint itself appears in good alignment. There is no abnormality of the visualized portions of the tarsal bones. IMPRESSION: Comminuted oblique distal tibial shaft fracture. Ankle joint appears in good alignment. Dictated by: Dictated on workstation # [id number]
--- NOTE | 2022-01-12 12:25 | Diagnostic Imaging Report ---
Indication: Fall with left leg pain. Time of Exam: 10:22 AM There is an obliquely oriented fracture through the midshaft of the tibia without significant displacement or angulation. There is also an obliquely oriented fracture through the proximal fibula. Alignment at the knee and ankles normal. IMPRESSION: Tibial and fibular fractures, as described. Dictated by: Dictated on workstation # [id number]
== END ==
LOC: RAD FS 09:57
PROVIDERS: ATTEND Nurse Practitioner
DX: S82.302A Unspecified fracture of lower end of left tibia, initial encounter for closed fracture (principal); X58.XXXA Exposure to other specified factors, initial encounter
CPT/HCPCS: 73590; 73610

== ENCOUNTER 2023-05-17 13:51 | Inpatient (IN) | payer MEDICARE, MEDICAID ==
[~2023-05-17] VITALS: Ht 172 cm; Wt 87.0 kg
--- NOTE | 2023-05-17 14:12 | ED General ---
General Chief Complaint: Fever-Adult/Adol Stated Complaint: AMS Nursing Triage Note: arrives via ems to room 05 with a c/o altered mental status and fever. lives at [facility] here in [place]. patient has a hx of IDD, sister is on her way here. Source of Information: Patient, EMS, Family, [facility] Records Exam Limitations: Physical Impairments History of Present Illness Date Seen by Provider: May 17, 2023 Time Seen by Provider: 13:53 Initial Comments 72-year-old female with past medical history of intellectual disability coming in via EMS from her assisted living due to altered mental status. She had eaten lunch normally around 1130, when they went back into check on her afterwards around 2 PM, she was altered, not speaking, not really wanting to move much. They called EMS after that. EMS reports her glucose was normal, she was tachycardic, and febrile for them. Patient has not had any reported symptoms such as cough, vomiting, diarrhea, or any other concerns. She is not answering questions at this time and further elements of the history and physical were unable to be obtained. Per the patient's younger sister, she is normally very talkative. She does not ambulate or even put any weight on her feet, and she is DNR. Allergies and Home Medications Allergies Coded Allergies: No Known Drug Allergies (Unverified , 05/17/23) Patient Home Medication List Home Medication List Reviewed: Yes Bisacodyl (Bisac-Evac) 10 Mg Supp.rect, 10 MG AR BID Prescribed by: CECE PANCHAL on 08/08/17 1140 Enoxaparin Sodium (Lovenox) 40 Mg/0.4 Ml Syringe, 40 MG SQ DAILY Prescribed by: CECE PANCHAL on 08/08/17 1140 Hydrocodone Bit/Acetaminophen (Lortab 5 Mg Tablet) 1 Tab Tab, 1-2 TAB PO Q4H PRN for PAIN-MODERATE Prescribed by: CECE PANCHAL on 08/08/17 1140 Lactulose (Lactulose) 20 Gm/30 Ml Solution, 10 GM PO BID Prescribed by: CECE PANCHAL on 08/08/17 1140 Pedi Multivit No.7/Folic Acid (Flintstones Multi-Vit Gummies) 100 Mcg Tab.chew, 100 MCG PO DAILY, (Reported) Entered as Reported by: STEPHY WILSON on 08/04/17 1758 Polyethylene Glycol 3350 (Polyethylene Glycol 3350) 17 Gm Powd.pack, 34 GM PO BID Prescribed by: CECE PANCHAL on 08/08/17 1140 Sennosides/Docusate Sodium (Senna-Time S Tablet) 1 Each Tablet, 2 EA PO BID Prescribed by: CECE PANCHAL on 08/08/17 1140 Review of Systems Review of Systems Constitutional: fever Psychiatric/Neurological: See HPI Past Jpmtfyu-Klpznn-Jtskwo Hx Patient Social History Tobacco Use?: No Seasonal Allergies Seasonal Allergies: No Past Medical History Surgeries: Yes Orthopedic Respiratory: No Cardiac: No Neurological: Yes (seizure disorder as a teenager. Last seizure early 20's. Mentally handicap) Genitourinary: No Gastrointestinal: No Fractures Endocrine: No HEENT: No Cancer: No Psychosocial: No Integumentary: No Family Medical History Patient reports no known family medical history. No Pertinent Family Hx Physical Exam Vital Signs Vital Signs - First Documented Capillary Refill : Less Than 3 Seconds Height, Weight, BMI Height: 5'6.00" Weight: 215lbs. 8.0oz. 97.448001xn; 27.00 BMI Method:Estimated General Appearance: No Apparent Distress, WD/WN Eyes: Bilateral Eye Normal Inspection, Bilateral Eye PERRL, Bilateral Eye EOMI HEENT: PERRL/EOMI, Normal ENT Inspection, Pharynx Normal Neck: Full Range of Motion, Normal Inspection, Non Tender, Supple Respiratory: Chest Non Tender, Lungs Clear, Normal Breath Sounds, No Accessory Muscle Use, No Respiratory Distress Cardiovascular: No Edema, Normal Peripheral Pulses, Tachycardia Gastrointestinal: Normal Bowel Sounds, Non Tender, Soft; No Distended, No Guarding Back: Normal Inspection, No CVA Tenderness Extremity: Normal Capillary Refill, Normal Inspection, Normal Range of Motion, Non Tender, No Calf Tenderness, No Pedal Edema Neurologic/Psychiatric: Alert, Other (Generally weak but no focal deficits, face is symmetric with no drooping, not speaking at this time but following general commands) Skin: Normal Color, Warm/Dry Focused Exam Lactate Level 05/17/23 14:07: Lactic Acid Level 1.76 Lactic Acid Level Laboratory Tests Test 05/17/23 14:07 Lactic Acid Level 1.76 MMOL/L (0.50-2.00) Progress/Results/Core Measures Suspected Sepsis SIRS Temperature: Pulse: 115 Respiratory Rate: 18 Laboratory Tests 05/17/23 14:07: White Blood Count 17.7H Blood Pressure 133 /104 Mean: 114 05/17/23 14:07: Lactic Acid Level 1.76 Laboratory Tests 05/17/23 14:07: Creatinine 0.83, INR Comment 1.0, Platelet Count 204, Total Bilirubin 0.4 Results/Orders Lab Results Laboratory Tests Test 05/17/23 14:07 05/17/23 14:10 05/17/23 14:41 Range/Units White Blood Count 17.7 H 4.3-11.0 10^3/uL Red Blood Count 4.62 3.80-5.11 10^6/uL Hemoglobin 13.2 11.5-16.0 g/dL Hematocrit 42 35-52 % Mean Corpuscular Volume 91 80-99 fL Mean Corpuscular Hemoglobin 29 25-34 pg Mean Corpuscular Hemoglobin Concent 32 32-36 g/dL Red Cell Distribution Width 14.5 10.0-14.5 % Platelet Count 204 130-400 10^3/uL Mean Platelet Volume 9.7 9.0-12.2 fL Immature Granulocyte % (Auto) 1 % Neutrophils (%) (Auto) 89 H 42-75 % Lymphocytes (%) (Auto) 4 L 12-44 % Monocytes (%) (Auto) 7 0-12 % Eosinophils (%) (Auto) 0 0-10 % Basophils (%) (Auto) 0 0-10 % Neutrophils # (Auto) 15.7 H 1.8-7.8 10^3/uL Lymphocytes # (Auto) 0.7 L 1.0-4.0 10^3/uL Monocytes # (Auto) 1.2 H 0.0-1.0 10^3/uL Eosinophils # (Auto) 0.0 0.0-0.3 10^3/uL Basophils # (Auto) 0.1 0.0-0.1 10^3/uL Immature Granulocyte # (Auto) 0.1 0.0-0.1 10^3/uL Neutrophils % (Manual) 89 % Lymphocytes % (Manual) 6 % Monocytes % (Manual) 5 % Prothrombin Time 13.4 12.2-14.7 SEC INR Comment 1.0 0.8-1.4 Activated Partial Thromboplast Time 25 24-35 SEC Sodium Level 139 135-145 MMOL/L Potassium Level 4.3 3.6-5.0 MMOL/L Chloride Level 102 98-107 MMOL/L Carbon Dioxide Level 27 21-32 MMOL/L Anion Gap 10 5-14 MMOL/L Blood Urea Nitrogen 15 7-18 MG/DL Creatinine 0.83 0.60-1.30 MG/DL Estimat Glomerular Filtration Rate 75 BUN/Creatinine Ratio 18 Glucose Level 131 H 70-105 MG/DL Lactic Acid Level 1.76 0.50-2.00 MMOL/L Calcium Level 9.1 8.5-10.1 MG/DL Corrected Calcium 9.1 8.5-10.1 MG/DL Total Bilirubin 0.4 0.1-1.0 MG/DL Aspartate Amino Transf (AST/SGOT) 17 5-34 U/L Alanine Aminotransferase (ALT/SGPT) 11 0-55 U/L Alkaline Phosphatase 93 40-136 U/L C-Reactive Protein 2.54 H <0.50 MG/DL Pro-B-Type Natriuretic Peptide 231.7 H <125.0 PG/ML Total Protein 8.5 H 6.4-8.2 GM/DL Albumin 4.0 3.2-4.5 GM/DL Influenza Type A (RT-PCR) Not Detected Not Detecte Influenza Type B (RT-PCR) Not Detected Not Detecte SARS-CoV-2 RNA (RT-PCR) Not Detected Not Detecte Urine Color YELLOW Urine Clarity CLEAR Urine pH 5.5 5-9 Urine Specific [place] >=1.030 1.016-1.022 Urine Protein NEGATIVE NEGATIVE Urine Glucose (UA) NEGATIVE NEGATIVE Urine Ketones NEGATIVE NEGATIVE Urine Nitrite NEGATIVE NEGATIVE Urine Bilirubin 1+ H NEGATIVE Urine Urobilinogen 0.2 < = 1.0 MG/DL Urine Leukocyte Esterase NEGATIVE NEGATIVE Urine RBC (Auto) 1+ H NEGATIVE Urine RBC 5-10 H /HPF Urine WBC NONE /HPF Urine Squamous Epithelial Cells 10-25 H /HPF Urine Crystals NONE /LPF Urine Bacteria LARGE H /HPF Urine Casts NONE /LPF Urine Mucus LARGE H /LPF Urine Yeast FEW H /HPF Urine Culture Indicated NO My Orders Orders - FRED BELTRAN MD Covid 19 Inhouse Test (05/17/23 14:03) Cbc And Automated Diff (05/17/23 14:03) Comprehensive Metabolic Panel (05/17/23 14:03) Blood Culture (05/17/23 14:03) Urinalysis (05/17/23 14:03) Urine Culture (05/17/23 14:03) Protime With Inr (05/17/23 14:03) Partial Thromboplastin Time (05/17/23 14:03) Chest 1 View Ap/Pa Only (05/17/23 14:03) Ed Iv/Invasive Line Start (05/17/23 14:03) Ed Iv/Invasive Line Start (05/17/23 14:03) Vital Signs Adult Sepsis Patie Q15M (05/17/23 14:03) O2 (05/17/23 14:03) Remove Rings In Anticipation O (05/17/23 14:03) Lactic Acid Analyzer (05/17/23 14:03) Ns Iv 1000 Ml (Ns Iv 1000 Ml) (05/17/23 14:15) Cefepime Injection (Cefepime Injection) (05/17/23 14:15) Ct Head Wo-R/O Stroke (05/17/23 14:03) Ekg Tracing (05/17/23 14:03) Influenza A And B By Pcr (05/17/23 14:03) Acetaminophen Suppository (Acetaminophen (05/17/23 14:15) Crp Fs (05/17/23 14:03) Manual Differential (05/17/23 14:07) Probnp Fs (05/17/23 14:34) Ed Admission (Communication) (05/17/23 15:11) Medications Given in ED Current Medications Medications Dose Ordered Sig/Татьяна Route Start Time Stop Time Status Last Admin Dose Admin Acetaminophen 650 mg ONCE ONCE AR 05/17/23 14:15 05/17/23 14:16 DC 05/17/23 14:31 650 MG Cefepime HCl 1000 mg/Sodium Chloride 50 ml @ 100 mls/hr ONCE ONCE IV 05/17/23 14:15 05/17/23 14:44 DC 05/17/23 14:30 100 MLS/HR Vital Signs/I&O 05/17/23 05/17/23 05/17/23 13:57 13:57 14:31 Temp 39.6 39.6 39.6 Pulse 115 115 Resp 18 18 B/P (MAP) 133/104 (114) 133/104 Pulse Ox 94 94 O2 Delivery Room Air Room Air Capillary Refill : Less Than 3 Seconds Blood Pressure Mean: 114 Progress Note : Progress Note 72-year-old female with above history coming in via EMS from her assisted living due to altered mental status. Patient was eating lunch, reportedly was normal at that time. Per the sister, she is talkative, plays cards, watches TV, and is generally able to have normal conversation. She is not able to even do any transfers at baseline. On arrival here she was febrile with a temp around 103. Heart rate is tachycardic, but blood pressure is slightly elevated which I think is reassuring. An IV was placed and basic labs were obtained and sepsis protocol initiated. Her white blood cell count is elevated at 17.7, lactic acid normal, normal creatinine, urinalysis obtained via a straight cath with large bacteria, but a large amount of squamous epithelial cells as well which likely is contamination. Chest x-ray ordered and interpreted by me showing no obvious pneumonia. CT head ordered and interpreted by me showing no hemorrhage or large mass. Per the radiologist, the CT head just shows some chronic findings which is stable. The patient was given a liter of IV fluids and cefepime empirically with her fever and altered mental status on arrival. Clinically, is septic, unclear of the source at this time. Very well could be viral. On review of the chart, during her last admission in 2018, she did have fluid on her lungs which they were concerned could be due to CHF. Because of this, we will just give the liter of fluids here, and will reassess later to see if she needs more fluids. I think it could be potentially detrimental if we just empirically give her 20 cc/kg of IV fluids over a rapid bolus. I contacted Dr. Panchal, she will admit the patient under inpatient status to the stepdown unit. ECG Initial ECG Impression Date: May 17, 2023 Initial ECG Impression Time: 14:31 Initial ECG Rate: 111 Initial ECG Rhythm: S.Tach Comment Significant motion artifact due to patient's disability, accounting for that there is a narrow QRS, normal axis, no STEMI Diagnostic Imaging Diagonstic Imaging: Xray (chest), CT (head) Comments NAME: BROOKS LESTER [facility] REC#: [id number] PT STATUS: REG ER : 1950 PHYSICIAN: FRED BELTRAN MD ADMIT DATE: 05/17/23/ER FS Draft Date of Exam:05/17/23 CT HEAD WO-R/O STROKE PROCEDURE: CT head wo r/o stroke. TECHNIQUE: Multiple contiguous axial images were obtained through the brain without the use of intravenous contrast. Auto Exposure Controls were utilized during the CT exam to meet ALARA standards for radiation dose reduction. INDICATION: Altered mental status with aphagia. Compared with CT head dated 08/04/2017. FINDINGS: The patient has extensive confluent symmetrical periventricular and subcortical white matter disease as a chronic finding. Cerebral cortical volume stable. No focal cortical or generalized cerebral edema. No sulcal effacement. There is no hemorrhage. No mass or mass effect. No shift or displacement of the midline structures. The basilar cisterns are patent. Orbits, sinuses and calvarium nonacute. No abnormal extra-axial fluid collection. No hemorrhage. IMPRESSION: Extensive chronic symmetrical white matter disease is stable, no hemorrhage, edema or acute finding. Dictated on workstation # [id number] Dict: 05/17/23 1421 Trans: 05/17/23 1426 CVB [id number] Interpreted by: JACOB CARRENO Electronically signed by: [facility] [place], [place] NAME: BROOKS LESTER [facility] REC#: [id number] PT STATUS: REG ER : 1950 PHYSICIAN: FRED BELTRAN MD ADMIT DATE: 05/17/23/ER FS Draft Date of Exam:05/17/23 CHEST 1 VIEW AP/PA ONLY Indication: Fever. Compared to 08/07/2017. Findings: Venous congestion improved. Bilateral interstitial opacities appeared less conspicuous today than on prior. It is unclear how much of this is recurrent edema or interstitial pneumonia versus chronic lung disease. No effusion. No pneumothorax. No adverse development from prior. Impression: Improvements in 5 lobe interstitial disease and decreased congestion. No pleural fluid. Dictated on workstation # [id number] Dict: 05/17/23 1438 Trans: 05/17/23 1446 CVB [id number] Interpreted by: JACOB CARRENO Electronically signed by: Departure Impression Primary Impression: Sepsis Qualified Codes: A41.9 - Sepsis, unspecified organism; R65.20 - Severe sepsis without septic shock; G93.41 - Metabolic encephalopathy Disposition: 30 STILL A PATIENT Condition: Stable Admissions Decision to Admit Reason: Admit from ER (General) Decision to Admit/Date: May 17, 2023 Time/Decision to Admit Time: 15:00 Transfer Transfer Facility: [facility] Method of Transfer: EMS Departure-Patient Inst. Referrals: EMILY ARANA MD (PCP/Family) Primary Care Physician FRED BELTRAN MD May 17, 2023 14:12
[2023-05-17] MEDS ORDERED: ACETAMINOPHEN 650 MG SUPPOSITORY PR ONE (14:15)
[2023-05-17] MEDS ORDERED: NS IV 1000 ML 1,000 ML IV SCH (14:15)
[2023-05-17] MEDS ORDERED: CEFEPIME INJECTION 1,000 MG in NS (IVPB) 50 ML 50 ML IV ONE (14:15)
[2023-05-17 14:17] LABS: BASOPHILS # (AUTO) 0.1 10^3/uL (0.0-0.1); BASOPHILS % (AUTO) 0 % (0-10); EOSINOPHILS % (AUTO) 0 % (0-10); HEMATOCRIT 42 % (35-52); HEMOGLOBIN 13.2 g/dL (11.5-16.0); LYMPHOCYTES # (AUTO) 0.7 10^3/uL (1.0-4.0); LYMPHOCYTES % (AUTO) 4 % (12-44); MEAN CORPUSCULAR HEMOGLOBIN 29 pg (25-34); MEAN CORPUSCULAR HGB CONC 32 g/dL (32-36); MEAN CORPUSCULAR VOLUME 91 fL (80-99); MEAN PLATELET VOLUME 9.7 fL (9.0-12.2); MONOCYTES # (AUTO) 1.2 10^3/uL (0.0-1.0); MONOCYTES % (AUTO) 7 % (0-12); NEUTROPHILS # (AUTO) 15.7 10^3/uL (1.8-7.8); NEUTROPHILS % (AUTO) 89 % (42-75); PLATELET COUNT 204 10^3/uL (130-400); WHITE BLOOD COUNT 17.7 10^3/uL (4.3-11.0)
--- NOTE | 2023-05-17 14:26 | Diagnostic Imaging Report ---
PROCEDURE: CT head wo r/o stroke. TECHNIQUE: Multiple contiguous axial images were obtained through the brain without the use of intravenous contrast. Auto Exposure Controls were utilized during the CT exam to meet ALARA standards for radiation dose reduction. INDICATION: Altered mental status with aphagia. Compared with CT head dated 08/04/2017. FINDINGS: The patient has extensive confluent symmetrical periventricular and subcortical white matter disease as a chronic finding. Cerebral cortical volume stable. No focal cortical or generalized cerebral edema. No sulcal effacement. There is no hemorrhage. No mass or mass effect. No shift or displacement of the midline structures. The basilar cisterns are patent. Orbits, sinuses and calvarium nonacute. No abnormal extra-axial fluid collection. No hemorrhage. IMPRESSION: Extensive chronic symmetrical white matter disease is stable, no hemorrhage, edema or acute finding. Dictated by: Dictated on workstation # [id number]
[2023-05-17 14:27] LABS: PROTHROMBIN TIME PATIENT 13.4 SEC (12.2-14.7)
[2023-05-17 14:32] LABS: BILIRUBIN,TOTAL 0.4 MG/DL (0.1-1.0); CALCIUM 9.1 MG/DL (8.5-10.1); POTASSIUM 4.3 MMOL/L (3.6-5.0)
[2023-05-17 14:38] LABS: CREATININE SERUM 0.83 MG/DL (0.60-1.30); TOTAL PROTEIN 8.5 GM/DL (6.4-8.2)
--- NOTE | 2023-05-17 14:47 | Diagnostic Imaging Report ---
Indication: Fever. Compared to 08/07/2017. Findings: Venous congestion improved. Bilateral interstitial opacities appeared less conspicuous today than on prior. It is unclear how much of this is recurrent edema or interstitial pneumonia versus chronic lung disease. No effusion. No pneumothorax. No adverse development from prior. Impression: Improvements in 5 lobe interstitial disease and decreased congestion. No pleural fluid. Dictated by: Dictated on workstation # [id number]
[2023-05-17 14:49] LABS: BILIRUBIN,URINE 1+ (NEGATIVE); CLARITY,URINE CLEAR; COLOR,URINE YELLOW; GLUCOSE, URINE (UA) NEGATIVE (NEGATIVE); KETONES,URINE NEGATIVE (NEGATIVE); LEUKOCYTE ESTERASE ,URINE NEGATIVE (NEGATIVE); NITRITE,URINE NEGATIVE (NEGATIVE); PH,URINE 5.5 (5-9); PROTEIN,URINE NEGATIVE (NEGATIVE)
[2023-05-17 14:54] LABS: BACTERIA,URINE LARGE /HPF; YEAST,URINE FEW /HPF
[2023-05-17 14:58] LABS: LYMPHOCYTES % (MANUAL) 6 %; MONOCYTES % (MANUAL) 5 %; NEUTROPHILS % (MANUAL) 89 %
[2023-05-17 16:30] VITALS: BP 134/77
[2023-05-17] MEDS ORDERED: LACTULOSE SYRUP 10GM/15ML 30ML UDC PO PRN (16:45)
[2023-05-17] MEDS ORDERED: ANTACID SUSPENSION 30 ML UDC PO PRN (16:45)
[2023-05-17] MEDS ORDERED: MELATONIN 3 MG TABLET PO PRN (16:45)
[2023-05-17] MEDS ORDERED: HYDROmorphone INJECTION 2 MG/ML VIAL IV PRN (16:45)
[2023-05-17] MEDS ORDERED: diphenhydrAMINE INJ 50 MG/ML VIAL IVP PRN (16:45)
[2023-05-17] MEDS ORDERED: ONDANSETRON 4 MG ORAL DISSOLVE TABLET PO PRN (16:45)
[2023-05-17] MEDS ORDERED: LORazepam 0.5 MG TABLET PO PRN (16:45)
[2023-05-17] MEDS ORDERED: oxyCODONE IMMEDIATE RELEASE 5 MG TABLET PO PRN (16:45)
[2023-05-17] MEDS ORDERED: diphenhydrAMINE 25 MG TABLET PO PRN (16:45)
[2023-05-17] MEDS ORDERED: BISACODYL 10 MG SUPPOSITORY PR PRN (16:45)
[2023-05-17] MEDS ORDERED: ONDANSETRON INJECTION 4 MG/2 ML (SDV) IV PRN (16:45)
[2023-05-17 17:03] VITALS: BP 133/104
[2023-05-17] MEDS ORDERED: RT-ALBUTEROL SULF 2.5 MG/3 ML PRE-MIX VIAL INH PRN (17:15)
[2023-05-17] MEDS: ACETAMINOPHEN 325 MG TABLET PO PRN (17:31)
[2023-05-17] MEDS: NS IV 1000 ML 1,000 ML IV SCH (17:32)
[2023-05-17] MEDS: ENOXAPARIN 40 MG/0.4 ML SYRINGE SC SCH (17:43)
[2023-05-17] MEDS ORDERED: IBUPROFEN 200 MG TABLET PO PRN (19:30)
[2023-05-17 20:00] VITALS: BP 118/69
[2023-05-17] MEDS: DOCUSATE SODIUM 100 MG CAPSULE PO SCH (20:54)
[2023-05-17] MEDS: CEFEPIME INJECTION 1,000 MG in NS (IVPB) 50 ML 50 ML IV SCH (21:09)
[2023-05-18] VITALS (7 sets, daily range): BP systolic 72–131; BP diastolic 52–74
[2023-05-18] MEDS: ACETAMINOPHEN 325 MG TABLET PO PRN (01:03)
[2023-05-18] MEDS: NS IV 1000 ML 1,000 ML IV SCH ×2 (01:03→08:54)
[2023-05-18 04:33] LABS: BASOPHILS # (AUTO) 0.1 10^3/uL (0.0-0.1); BASOPHILS % (AUTO) 0 % (0-10); EOSINOPHILS % (AUTO) 0 % (0-10); HEMATOCRIT 35 % (35-52); LYMPHOCYTES % (AUTO) 6 % (12-44); MEAN CORPUSCULAR HEMOGLOBIN 29 pg (25-34); MEAN CORPUSCULAR HGB CONC 32 g/dL (32-36); MEAN CORPUSCULAR VOLUME 91 fL (80-99); MEAN PLATELET VOLUME 10.4 fL (9.0-12.2); MONOCYTES # (AUTO) 0.9 10^3/uL (0.0-1.0); MONOCYTES % (AUTO) 5 % (0-12); NEUTROPHILS # (AUTO) 15.8 10^3/uL (1.8-7.8); NEUTROPHILS % (AUTO) 88 % (42-75); PLATELET COUNT 187 10^3/uL (130-400)
[2023-05-18 04:54] LABS: ALBUMIN 3.2 GM/DL (3.2-4.5); BILIRUBIN,TOTAL 0.4 MG/DL (0.1-1.0); CALCIUM 8.3 MG/DL (8.5-10.1); CREATININE SERUM 0.87 MG/DL (0.60-1.30); TOTAL PROTEIN 6.7 GM/DL (6.4-8.2)
[2023-05-18] MEDS: CEFEPIME INJECTION 1,000 MG in NS (IVPB) 50 ML 50 ML IV SCH ×3 (05:22→21:35)
--- NOTE | 2023-05-18 06:18 | History & Physical-Hospitalist ---
History of Present Illness HPI/Chief Complaint Chief complaint: Fever with suspicion for sepsis HPI: This is a 72-year-old female who lives in assisted living who presents to the ER with high fever of 103 and tachycardia. Flu and COVID were negative. Chest x-ray appeared to be normal. The suspicion was dehydration nonrevealing infiltrates on chest x-ray so she was placed on cefepime empirically due to assisted living status and will receive IV fluid resuscitation. Currently she is doing much better and her sister is at the bedside. Patient appears to have a learning disability. Overall she is doing much better so we will move down to fourth floor. Tachycardia has resolved. Source: patient, family Exam Limitations: no limitations Date Seen 05/18/23 Time Seen by a Provider: 11:00 Attending Physician Woo,Daniel PEGUERO PCP Admitting Physician: Patsy Cole DO Attending Physician: Patsy Cole DO Referring Physician Date of Admission May 17, 2023 at 16:44 Home Medications & Allergies Home Medications Reviewed patient Home Medication Reconciliation performed by pharmacy medication reconciliations er medical technician and/or nursing. Patients Allergies have been reviewed. Allergies Allergies Coded Allergies No Known Drug Allergies (Lujepykoqc55/24/23) Past Dgyclko-Curexv-Tebomv Hx Patient Social History Marrital Status: single Employed/Student: unemployed Tobacco Use?: No Smoking Status: Never a Smoker Use of E-Cig and/or Vaping dev: No Substance use?: No Alcohol Use?: No Pt feels they are or have been: No Immunizations Up To Date First/Initial COVID19 Vaccinat: not vacc Tetanus Booster (TDap): Unknown Seasonal Allergies Seasonal Allergies: No Current Status Advance Directives: Yes Advance Directive Location: Copy placed in chart Communicates: Verbally Primary Language: Lao Preferred Spoken Language: Lao Is interpretation needed?: No Implanted or Applied Medical D: None Past Medical History Surgeries: Orthopedic Fractures Family Medical History Patient reports no known family medical history. No Pertinent Family Hx Review of Systems Constitutional: see HPI, fever, weakness Physical Exam Physical Exam Vital Signs Vital Signs - First Documented 05/17/23 17:03 FiO2 21 Capillary Refill : Less Than 3 Seconds Height, Weight, BMI Height: 5'6.00" Weight: 215lbs. 8.0oz. 97.584474gy; 29.40 BMI Method:Estimated General Appearance: No Apparent Distress, Chronically ill, Obese Eyes: Right Eye Normal Inspection, Right Eye PERRL HEENT: PERRL/EOMI, Normal ENT Inspection, Pharynx Normal, Moist Mucous Membranes Neck: Full Range of Motion, Normal Inspection, Non Tender Respiratory: Chest Non Tender, Lungs Clear, Normal Breath Sounds, No Accessory Muscle Use, No Respiratory Distress Cardiovascular: Regular Rate, Rhythm, No Edema, No Gallop, No JVD, No Murmur, Normal Peripheral Pulses Gastrointestinal: Normal Bowel Sounds, No Organomegaly, No Pulsatile Mass, Non Tender, Soft Back: Normal Inspection, No CVA Tenderness, No Vertebral Tenderness Extremity: Normal Capillary Refill, Normal Inspection, Normal Range of Motion, Non Tender, No Calf Tenderness, No Pedal Edema Neurologic/Psychiatric: Alert, Oriented x3, No Motor/Sensory Deficits, Normal Mood/Affect, Disoriented Skin: Normal Color, Warm/Dry Lymphatic: No Adenopathy Results Results/Procedures Labs Laboratory Tests 05/17/23 14:07 05/18/23 04:14 05/19/23 05:15 Patient resulted labs reviewed. Assessment/Plan Admission Diagnosis Assessment: Sepsis of unknown source suspect pneumonia placed on cefepime empirically tachycardia High fever Intellectually disabled Leukocytosis Plan: Supportive care IV antibiotics empirically Move down to fourth floor Admission Status: Inpatient Order (span 2 midnights) Reason for Inpatient Admission: Sepsis with tachycardia suspected pneumonia with intellectual delay PATSY COLE DO May 18, 2023 06:18
[2023-05-18] MEDS: DOCUSATE SODIUM 100 MG CAPSULE PO SCH ×2 (09:05→19:22)
--- NOTE | 2023-05-18 11:36 | Diagnostic Imaging Report ---
INDICATION: Dyspnea and hypoxia. COMPARISON: 05/17/2023 DISCUSSION: Single portable upright view of the chest was obtained. Cardiomegaly is stable. Bilateral perihilar infiltrates are stable, likely edema, less likely pneumonia. No pleural fluid or pneumothorax. No osseous abnormality. IMPRESSION: 1. Stable chest. Dictated by: Dictated on workstation # [id number]
[2023-05-18] MEDS: ENOXAPARIN 40 MG/0.4 ML SYRINGE SC SCH (17:02)
[2023-05-19] VITALS (7 sets, daily range): BP systolic 118–138; BP diastolic 59–79
[2023-05-19 05:32] LABS: HEMOGLOBIN 9.8 g/dL (11.5-16.0); MEAN PLATELET VOLUME 10.3 fL (9.0-12.2)
[2023-05-19] MEDS: CEFEPIME INJECTION 1,000 MG in NS (IVPB) 50 ML 50 ML IV SCH (05:32)
[2023-05-19 05:33] LABS: BASOPHILS # (AUTO) 0.1 10^3/uL (0.0-0.1); BASOPHILS % (AUTO) 1 % (0-10); EOSINOPHILS # (AUTO) 0.1 10^3/uL (0.0-0.3); EOSINOPHILS % (AUTO) 1 % (0-10); HEMATOCRIT 31 % (35-52); LYMPHOCYTES # (AUTO) 1.2 10^3/uL (1.0-4.0); LYMPHOCYTES % (AUTO) 9 % (12-44); MEAN CORPUSCULAR HEMOGLOBIN 29 pg (25-34); MEAN CORPUSCULAR HGB CONC 32 g/dL (32-36); MEAN CORPUSCULAR VOLUME 90 fL (80-99); MONOCYTES % (AUTO) 8 % (0-12); NEUTROPHILS # (AUTO) 10.6 10^3/uL (1.8-7.8); NEUTROPHILS % (AUTO) 82 % (42-75); PLATELET COUNT 147 10^3/uL (130-400)
[2023-05-19 05:56] LABS: ALBUMIN 2.9 GM/DL (3.2-4.5); BILIRUBIN,TOTAL 0.3 MG/DL (0.1-1.0); CALCIUM 8.5 MG/DL (8.5-10.1); CREATININE SERUM 0.7 MG/DL (0.60-1.30); POTASSIUM 3.6 MMOL/L (3.6-5.0); TOTAL PROTEIN 6.2 GM/DL (6.4-8.2)
--- NOTE | 2023-05-19 06:38 | Progress Note - Hospitalist ---
Subjective HPI/CC On Admission Date Seen by Provider: May 19, 2023 Time Seen by Provider: 11:00 Chief complaint: Fever with suspicion for sepsis HPI: This is a 72-year-old female who lives in assisted living who presents to the ER with high fever of 103 and tachycardia. Flu and COVID were negative. Chest x-ray appeared to be normal. The suspicion was dehydration nonrevealing infiltrates on chest x-ray so she was placed on cefepime empirically due to assisted living status and will receive IV fluid resuscitation. Currently she is doing much better and her sister is at the bedside. Patient appears to have a learning disability. Overall she is doing much better so we will move down to fourth floor. Tachycardia has resolved. Subjective/Events-last exam Patient wants to ho home WBC still 13k Disappointed about no DC today No falls UTI confirmed on UCx Review of Systems General: Fatigue, Malaise Focused Exam Lactate Level 05/17/23 14:07: Lactic Acid Level 1.76 Objective Exam Vital Signs Vital Signs Date Time Temp Pulse Resp B/P (MAP) Pulse Ox O2 Delivery O2 Flow Rate FiO2 05/19/23 11:55 37.1 65 16 131/71 (91) 97 Room Air 05/17/23 17:03 21 Capillary Refill : Less Than 3 Seconds General Appearance: No Apparent Distress, WD/WN, Chronically ill Respiratory: Lungs Clear, Normal Breath Sounds Cardiovascular: Regular Rate, Rhythm Neurologic/Psychiatric: Alert, Oriented x3, Disoriented Results/Procedures Lab Laboratory Tests 05/19/23 05:15 Patient resulted labs reviewed. Assessment/Plan Assessment and Plan Assess & Plan/Chief Complaint Assessment: Sepsis due to complicated UTI High fever now resolved Intellectually disabled Leukocytosis-improved Plan: Supportive care IV antibiotics narrowed to Rocephin Fourth floor CECE PANCHAL DO May 19, 2023 06:38
[2023-05-19] MEDS: DOCUSATE SODIUM 100 MG CAPSULE PO SCH ×2 (08:54→20:18)
[2023-05-19] MEDS ORDERED: CEFDINIR 300 MG CAPSULE PO ONE (11:24)
[2023-05-19] MEDS: ENOXAPARIN 40 MG/0.4 ML SYRINGE SC SCH (15:56)
[2023-05-19] MEDS: CEFDINIR 300 MG CAPSULE PO SCH (20:18)
[2023-05-20 03:32] VITALS: BP 125/77
[2023-05-20] MEDS ORDERED: CEFD300C3 PO ×2 (05:02→11:16)
--- NOTE | 2023-05-20 05:03 | Discharge Summary ---
Discharge Summary Hospital Course Was the Problem List Reviewed?: Yes Problems/Dx: (1) Sepsis Qualifiers: Qualified Codes: A41.9 - Sepsis, unspecified organism; R65.20 - Severe sepsis without septic shock; G93.41 - Metabolic encephalopathy (2) Metabolic encephalopathy (3) Intellectual delay (4) UTI (urinary tract infection) Hospital Course Date of Admission: May 17, 2023 at 16:44 Admission Diagnosis : Family Physician/Provider: Daniel Berkowitz MD Date of Discharge: 05/20/23 Discharge Diagnosis: [ ] Hospital Course: Uneventful hospital course after she was admitted due to altered mental status placed on empiric antibiotics. Sepsis was unknown until urine culture came back and patient was transition to narrow antibiotics and metabolic encephalopathy resolved and she was discharged in improved condition. Labs and Pending Lab Test: Laboratory Tests 05/19/23 05:15: White Blood Count 13.0H, Red Blood Count 3.39L, Hemoglobin 9.8L, Hematocrit 31L, Mean Corpuscular Volume 90, Mean Corpuscular Hemoglobin 29, Mean Corpuscular Hemoglobin Concent 32, Red Cell Distribution Width 14.6H, Platelet Count 147, Mean Platelet Volume 10.3, Immature Granulocyte % (Auto) 1, Neutrophils (%) (Auto) 82H, Lymphocytes (%) (Auto) 9L, Monocytes (%) (Auto) 8, Eosinophils (%) (Auto) 1, Basophils (%) (Auto) 1, Neutrophils # (Auto) 10.6H, Lymphocytes # (Auto) 1.2, Monocytes # (Auto) 1.0, Eosinophils # (Auto) 0.1, Basophils # (Auto) 0.1, Immature Granulocyte # (Auto) 0.1, Percent Immature Platelet Fraction 2.5, Sodium Level 140, Potassium Level 3.6, Chloride Level 110H, Carbon Dioxide Level 22, Anion Gap 8, Blood Urea Nitrogen 14, Creatinine 0.70, Estimat Glomerular Filtration Rate 92, BUN/Creatinine Ratio 20, Glucose Level 104, Calcium Level 8.5, Corrected Calcium 9.4, Total Bilirubin 0.3, Aspartate Amino Transf (AST/SGOT) 16, Alanine Aminotransferase (ALT/SGPT) 11, Alkaline Phosphatase 54, Total Protein 6.2L, Albumin 2.9L Microbiology 05/17/23 Urine Culture - Final, Complete Escherichia coli 05/17/23 Blood Culture - Preliminary, Resulted Home Meds Active Cefdinir 300 Mg Capsule 300 Mg PO BID Senna-Time S Tablet (Sennosides/Docusate Sodium) 1 Each Tablet 2 Ea PO BID 30 Days Polyethylene Glycol 3350 17 Gm Powd.pack 34 Gm PO BID 30 Days Bisac-Evac (Bisacodyl) 10 Mg Supp.rect 10 Mg MN BID 30 Days Reported Flintstones Multi-Vit Gummies (Pedi Multivit No.7/Folic Acid) 100 Mcg Tab.chew 100 Mcg PO DAILY Assessment/Pt Instructions PCP in 1 week Discharge Planning: <30 minutes discharge planning Discharge Instructions Discharge Diet: No Restrictions Discharge Physical Examination Vital Signs Vital Signs Date Time Temp Pulse Resp B/P (MAP) Pulse Ox O2 Delivery O2 Flow Rate FiO2 05/20/23 03:32 37.0 65 20 125/77 (93) 97 Room Air 05/17/23 17:03 21 General Appearance: No Apparent Distress, WD/WN Allergies: Coded Allergies: No Known Drug Allergies (Unverified , 05/17/23) Discharge Summary Date of Admission May 17, 2023 at 16:44 Date of Discharge Discharge Date: May 20, 2023 Admission Diagnosis Assessment: Sepsis of unknown source suspect pneumonia placed on cefepime empirically tachycardia High fever Intellectually disabled Leukocytosis Plan: Supportive care IV antibiotics empirically Move down to fourth floor Discharge Diagnosis Assessment: Sepsis due to complicated UTI High fever now resolved Intellectually disabled Leukocytosis-improved Plan: Supportive care IV antibiotics narrowed to Rocephin Fourth floor CECE PANCHAL DO May 20, 2023 05:03
--- NOTE | 2023-05-20 05:03 | D/C HH Face to Face Order ---
D/C HH Face to Face Orders Reconcile Patient Problems Problems Reviewed?: Yes Instructions for Patient HH Patient Instructions/FollowUp: pcp as scheduled Physician to follow Patient: pcp Discharge Diet for Home: No Restrictions Patient Problems: uti Patient Data-Allergies,Ht & Wt Patient Allergies: Coded Allergies: No Known Drug Allergies (Unverified , 05/17/23) Height (Feet): 5 Height (Inches): 6.00 Weight (Pounds): 215 Weight (Ounces): 8.0 Home Health Need/Face to Face Date of Face to Face: May 20, 2023 Clinical Findings: Generalized weakness and fatigue, Instability, Muscle weakness I have seen Pt [id number]: Yes Discharged To: Home Diagnosis/Conditions: uti Patient is Homebound due to: CognItive deficits, Muscle weakness Homebound Status Due to the above stated illness, injury or surgical procedure (medical condition or diagnosis) and associated clinical findings, the patient is homebound because of his/her inability to leave home except with aid of a supportive device and/or person AND leaving the home requires a considerable and taxing effort or is medically contraindicated. Pt req the following assistanc: [facility] Nursing Orders Home Health Services Order: Water Meter Mechanic-Evaluate & Treat, Physical Therapy-Evaluate & Treat Home Health Infusion Therapy Line Start Date: May 17, 2023 Certify Stmt I certify that this patient is under my care and that I, a nurse practitioner or a physician; a travel assistant working with me, had a face to face encounter that - meets the physician face to face encounter requirements with this patient as dated. CECE PANCHAL DO May 20, 2023 05:03
[2023-05-20 05:35] LABS: BASOPHILS # (AUTO) 0.1 10^3/uL (0.0-0.1); BASOPHILS % (AUTO) 1 % (0-10); EOSINOPHILS # (AUTO) 0.2 10^3/uL (0.0-0.3); EOSINOPHILS % (AUTO) 2 % (0-10); HEMATOCRIT 31 % (35-52); LYMPHOCYTES # (AUTO) 1.2 10^3/uL (1.0-4.0); LYMPHOCYTES % (AUTO) 12 % (12-44); MEAN CORPUSCULAR HEMOGLOBIN 29 pg (25-34); MEAN CORPUSCULAR HGB CONC 32 g/dL (32-36); MEAN CORPUSCULAR VOLUME 89 fL (80-99); MEAN PLATELET VOLUME 10.5 fL (9.0-12.2); MONOCYTES # (AUTO) 0.9 10^3/uL (0.0-1.0); MONOCYTES % (AUTO) 9 % (0-12); NEUTROPHILS # (AUTO) 7.5 10^3/uL (1.8-7.8); NEUTROPHILS % (AUTO) 76 % (42-75); PLATELET COUNT 155 10^3/uL (130-400); WHITE BLOOD COUNT 9.8 10^3/uL (4.3-11.0)
[2023-05-20 05:52] LABS: ALBUMIN 2.9 GM/DL (3.2-4.5); BILIRUBIN,TOTAL 0.3 MG/DL (0.1-1.0); CALCIUM 8.2 MG/DL (8.5-10.1); CREATININE SERUM 0.66 MG/DL (0.60-1.30); POTASSIUM 3.5 MMOL/L (3.6-5.0); TOTAL PROTEIN 6.3 GM/DL (6.4-8.2)
[2023-05-20] MEDS ORDERED: POTASSIUM CHLORIDE 20 MEQ TABLET PO ONE (07:15)
[2023-05-20 07:26] VITALS: BP 127/71
[2023-05-20] MEDS: DOCUSATE SODIUM 100 MG CAPSULE PO SCH (08:02)
[2023-05-20] MEDS: CEFDINIR 300 MG CAPSULE PO SCH (08:02)
--- NOTE | 2023-05-20 09:39 | Physical Therapy Progress Note ---
Therapy Progress Note Patient adamantly declined PT stating, "I'm going home." Patient is from [place]. PT attempted to encourage patient to participate, however, patient continued to refuse. Nursing present. KARLA DEWITT PT May 20, 2023 09:39
[2023-05-20 11:07] VITALS: BP 146/72
[2023-05-20 15:21] VITALS: BP 136/84
[2023-05-20 16:26] VITALS: BP 136/84
--- NOTE | 2023-05-20 19:36 | Physician Query-Final Dx ---
SWATHI FISH 05/20/231935: Final Diagnosis Give Final Diagnosis Please give Final Diagnosis The medical record reflects the following clinical scenario: The patient, in the setting of History/Risk factors, Sepsis with Hx of intellectual Disability Clinical Findings Documentation of GCS 13 on admission improved to 15, brought to hospital due to "altered mental status" Not answering any questions, normally very talkative Treatment CT Head completed, Neuro monitoring, Question: Do you agree with the impression of Metabolic encephalopathy per Dr. Damon Ross? Yes; will document Metabolic encephalopathy in the Progress Notes, present on admission, resolved No; will continue current documentation in the Progress Notes Other; will document explanation of clinical findings Clinically undetermined; no explanation for clinical findings Please clarify and document your clinical opinion in the Progress Notes and Discharge Summary including the definitive and/or presumptive diagnosis, (suspected or probable), related to the above clinical findings. Please include clinical findings supporting your diagnosis. In responding to this query, please exercise your independent professional judgment. The purpose of this communication is to more accurately reflect the complexity of your patients condition. The fact that a question is asked does not imply that any particular answer is desired or expected. Thank you for timely response to this clarification. Swathi Fish, MSN, RN Clinical Internal Wholesaler [phone] [email or web address] CECE PANCHAL DO 05/20/232028: Final Diagnosis Give Final Diagnosis Yes; will document Metabolic encephalopathy in the Progress Notes, present on admission, resolved SWATHI FISH May 20, 2023 19:36 CECE PANCHAL DO May 20, 2023 20:29
== END 2023-05-20 16:20 | DRG 871 ==
LOC: EDUNIT# 13:51 → ER FS 13:52 → CSD 16:44 → 4TH 05-18 12:47
PROVIDERS: ADMIT Internal Medicine; ATTEND Internal Medicine
DX: A41.9 Sepsis, unspecified organism (principal); G93.41 Metabolic encephalopathy; N39.0 Urinary tract infection, site not specified; G40.919 Epilepsy, unspecified, intractable, without status epilepticus; F81.9 Developmental disorder of scholastic skills, unspecified; D72.829 Elevated white blood cell count, unspecified; Z11.52 Encounter for screening for COVID-19; Z66 Do not resuscitate
CPT/HCPCS: 36415; 70450; 71045; 80053; 81000; 83605; 83880; 85007; 85025; 85027; 85610; 85730; 86141; 87040; 87077; 87088; 87186; 87636; 93005; 94760